=== PATIENT | male | born 1935 | race Two or more races ===

== ENCOUNTER 2016-07-18 20:45 | Emergency (ER) | payer MEDICARE, OTHER ==
[~2016-07-18 20:45] MED LIST: ASPI81CH59 PO; CARB25TA75 PO; DOC100C PO; GLIP-116 PO; INSUINJ37 SUBCUT; METF-312 PO; PRAV20TA3 PO; RASA1TAB PO; TAMS0.4C36 PO
[2016-07-18 23:26] LABS: Basophils # (auto) 0.6 uL; Basophils % (auto) 3.1 % (0.0-2.0); DEFINITIVE VIEW TRANSMISSION; Eosinophils # (auto) 0 uL; Eosinophils % (auto) 0.1 % (0.0-7.0); Hematocrit 45.3 % (41.0-53.0); Hemoglobin 15.1 g/dL (13.5-17.5); Lymphocytes # (auto) 0.8 uL; Lymphocytes % (auto) 4.5 % (10.0-50.0); Mean Corpuscular Hgb Conc. 33.4 g/dL (32.0-36.0); Mean Platelet Volume 8.8 fL (7.4-10.4); Monocytes # (auto) 1.5 uL; Monocytes % (auto) 8.2 % (0.0-12.0); Neutrophils # (auto) 15.4 uL; Neutrophils % (auto) 84.1 % (37.0-80.0); Platelet Count (auto) 232 10^3/uL (140-450); Red Cell Distribution Width 11.8 % (11.6-16.0); SUSPECT VIEW TRANSMISSION; White Blood Cell 18.3 10^3/uL (4.4-10.8)
[2016-07-18 23:35] LABS: Albumin 3.3 g/dL (3.4-5.0); BUN/Creatinine Ratio 11.8; Calcium 8.6 mg/dL (8.5-10.1); Potassium 4.8 mmol/L (3.5-5.1)
[2016-07-18 23:37] LABS: Bilirubin, Total 0.7 mg/dL (0.2-1.0); Total Protein 6.8 g/dL (6.4-8.2)
[2016-07-18] MEDS ORDERED: IOHEXOL 300 MG/ML 100ML BOTTLE IJ ONE (23:45)
[2016-07-19 03:11] VITALS: BP 116/82
== END 2016-07-19 03:16 | disposition home or self-care (01) ==
LOC: EDBD 20:45 → EDUNIT# 20:45 → ER 20:49
DX: S20.219A Contusion of unspecified front wall of thorax, initial encounter (principal); R10.10 Upper abdominal pain, unspecified; E11.9 Type 2 diabetes mellitus without complications; E78.5 Hyperlipidemia, unspecified; I10 Essential (primary) hypertension; Z79.4 Long term (current) use of insulin; W18.39XA Other fall on same level, initial encounter; Y93.89 Activity, other specified; Y99.8 Other external cause status; Y92.009 Unspecified place in unspecified non-institutional (private) residence as the place of occurrence of the external cause
CPT/HCPCS: 36415; 71260; 74177; 80053; 83690; 85025; 99285; J7030; Q9967

== ENCOUNTER → 2016-07-19 | Outpatient (CLI) | payer MEDICARE, OTHER | END | disposition home or self-care (01) | LOC: LAB 14:37 | PROVIDERS: ATTEND Internal Medicine | DX: Z91.81 History of falling (principal) | CPT/HCPCS: 87086 ==

== ENCOUNTER → 2016-07-21 | Outpatient (CLI) | payer MEDICARE, OTHER ==
[2016-07-21 13:50] LABS: Basophils # (auto) 0 uL; Eosinophils # (auto) 0.1 uL; Eosinophils % (auto) 1.2 % (0.0-7.0); Hematocrit 43.1 % (41.0-53.0); Hemoglobin 14.3 g/dL (13.5-17.5); Lymphocytes # (auto) 1.2 uL; Lymphocytes % (auto) 11.2 % (10.0-50.0); Mean Corpuscular Hemoglobin 29.2 pg (28.0-32.0); Mean Corpuscular Hgb Conc. 33.1 g/dL (32.0-36.0); Mean Corpuscular Volume 88.1 fL (80.0-100.0); Mean Platelet Volume 10.5 fL (7.4-10.4); Monocytes # (auto) 0.7 uL; Monocytes % (auto) 6.7 % (0.0-12.0); Neutrophils # (auto) 8.6 uL; Neutrophils % (auto) 80.9 % (37.0-80.0); Platelet Count (auto) 270 10^3/uL (140-450); Red Cell Distribution Width 13.4 % (11.6-16.0); SUSPECT VIEW TRANSMISSION; White Blood Cell 10.7 10^3/uL (4.4-10.8)
[2016-07-21 13:55] LABS: BUN/Creatinine Ratio 15.1; Calcium 8.7 mg/dL (8.5-10.1); Potassium 4.2 mmol/L (3.5-5.1)
== END | disposition home or self-care (01) ==
LOC: LAB 12:54
PROVIDERS: ATTEND Internal Medicine
DX: E86.0 Dehydration (principal); D72.829 Elevated white blood cell count, unspecified
CPT/HCPCS: 36415; 80048; 83036; 85025

== ENCOUNTER → 2017-01-24 | Outpatient (CLI) | payer MEDICARE, OTHER ==
[~2017-01-24] MED LIST changes: -METF-312 PO; +METF-370 PO
[2017-01-24 11:27] LABS: Basophils # (auto) 0 uL; Basophils % (auto) 0.5 % (0.0-2.0); Eosinophils # (auto) 0.2 uL; Eosinophils % (auto) 2.2 % (0.0-7.0); Hematocrit 45.6 % (41.0-53.0); Hemoglobin 15.6 g/dL (13.5-17.5); Lymphocytes % (auto) 11.4 % (10.0-50.0); Mean Corpuscular Hemoglobin 29.6 pg (28.0-32.0); Mean Corpuscular Hgb Conc. 34.3 g/dL (32.0-36.0); Mean Corpuscular Volume 86.1 fL (80.0-100.0); Mean Platelet Volume 9.6 fL (6.9-10.8); Monocytes # (auto) 0.6 uL; Monocytes % (auto) 7.1 % (0.0-12.0); Neutrophils # (auto) 7.1 uL; Neutrophils % (auto) 78.8 % (37.0-80.0); Nucleated Red Blood Cells % 0.1 %; Platelet Count (auto) 232 10^3/uL (140-450); Red Cell Distribution Width 13.7 % (11.8-14.3)
[2017-01-24 12:09] LABS: Albumin 3.4 g/dL (3.4-5.0); BUN/Creatinine Ratio 14.7; Bilirubin, Total 0.5 mg/dL (0.2-1.0); Calcium 8.3 mg/dL (8.5-10.1); Potassium 4.4 mmol/L (3.5-5.1); Total Protein 7.3 g/dL (6.4-8.2); Uric Acid 5.9 mg/dL (3.5-7.2)
== END | disposition home or self-care (01) ==
LOC: LAB 10:34
PROVIDERS: ATTEND Internal Medicine
DX: E10.9 Type 1 diabetes mellitus without complications (principal); I12.9 Hypertensive chronic kidney disease with stage 1 through stage 4 chronic kidney disease, or unspecified chronic kidney disease; N18.3 Chronic kidney disease, stage 3 (moderate); N40.0 Benign prostatic hyperplasia without lower urinary tract symptoms
CPT/HCPCS: 36415; 80053; 83036; 83970; 84153; 84550; 85025

== ENCOUNTER → 2017-07-12 | Outpatient (CLI) | payer MEDICARE, OTHER ==
[2017-07-12 11:30] LABS: Urine Bacteria NONE SEEN /hpf (None Seen); Urine Blood Negative /uL (Negative); Urine Specific Gravity 1.018 (1.001-1.035); Urine WBC 25 /hpf (0 - 3)
[2017-07-12 12:27] LABS: Albumin 3.5 g/dL (3.4-5.0); Bilirubin, Total 0.5 mg/dL (0.2-1.0); Calcium 8.3 mg/dL (8.5-10.1); Potassium 4.8 mmol/L (3.5-5.1); Total Protein 7.4 g/dL (6.4-8.2)
[2017-07-12 12:45] LABS: Basophils # (auto) 0 uL; Basophils % (auto) 0.5 % (0.0-2.0); Eosinophils # (auto) 0.1 uL; Hematocrit 47.4 % (41.0-53.0); Hemoglobin 15.7 g/dL (13.5-17.5); Lymphocytes % (auto) 13.5 % (10.0-50.0); Mean Corpuscular Hemoglobin 29.4 pg (28.0-32.0); Mean Corpuscular Hgb Conc. 33.1 g/dL (32.0-36.0); Mean Corpuscular Volume 88.7 fL (80.0-100.0); Monocytes # (auto) 0.6 uL; Monocytes % (auto) 7.7 % (0.0-12.0); Neutrophils # (auto) 5.7 uL; Neutrophils % (auto) 76.3 % (37.0-80.0); Platelet Count (auto) 227 10^3/uL (140-450); Red Blood Cells 5.35 10^6/uL (4.5-5.90); Red Cell Distribution Width 13.2 % (11.8-14.3); White Blood Cell 7.5 10^3/uL (4.4-10.8)
== END | disposition home or self-care (01) ==
LOC: LAB 11:00
PROVIDERS: ATTEND Internal Medicine
DX: I10 Essential (primary) hypertension (principal); E11.9 Type 2 diabetes mellitus without complications; E55.9 Vitamin D deficiency, unspecified
CPT/HCPCS: 36415; 80053; 80061; 81001; 82043; 83036; 84439; 84443; 85025; 85652

== ENCOUNTER → 2018-05-16 | Outpatient (CLI) | payer MEDICARE, OTHER ==
[2018-05-16 13:25] LABS: Albumin 3.3 g/dL (3.4-5.0); Calcium 8.6 mg/dL (8.5-10.1); Potassium 4.6 mmol/L (3.5-5.1)
[2018-05-16 13:29] LABS: BUN/Creatinine Ratio 14.4; Bilirubin, Total 0.4 mg/dL (0.2-1.0); Total Protein 7.1 g/dL (6.4-8.2)
== END | disposition home or self-care (01) ==
LOC: LAB 12:32
PROVIDERS: ATTEND Internal Medicine
DX: N40.0 Benign prostatic hyperplasia without lower urinary tract symptoms (principal); E11.22 Type 2 diabetes mellitus with diabetic chronic kidney disease; N18.3 Chronic kidney disease, stage 3 (moderate)
CPT/HCPCS: 36415; 80053; 83036; 84153

== ENCOUNTER 2018-06-09 07:29 | Emergency (ER) | payer MEDICARE, OTHER ==
[~2018-06-09] VITALS: Ht 170.2 cm; Wt 90.7 kg
[2018-06-09] MEDS ORDERED: TETANUS-DIPTH-ACEL PERTUSSIS 0.5ML SYRG IM ONE (08:45)
[2018-06-09 09:13] LABS: Basophils # (auto) 0 uL; Basophils % (auto) 0.4 % (0.0-2.0); Eosinophils # (auto) 0.2 uL; Eosinophils % (auto) 2.3 % (0.0-7.0); Hematocrit 45.8 % (41.0-53.0); Hemoglobin 15.7 g/dL (13.5-17.5); Lymphocytes # (auto) 0.9 uL; Lymphocytes % (auto) 10.7 % (10.0-50.0); Mean Corpuscular Hgb Conc. 34.3 g/dL (32.0-36.0); Mean Corpuscular Volume 87.2 fL (80.0-100.0); Monocytes # (auto) 0.5 uL; Monocytes % (auto) 6.6 % (0.0-12.0); Neutrophils # (auto) 6.5 uL; Nucleated Red Blood Cells % 0.1 %; Platelet Count (auto) 198 10^3/uL (140-450); Red Blood Cells 5.25 10^6/uL (4.5-5.90); Red Cell Distribution Width 13.2 % (11.8-14.3); White Blood Cell 8.1 10^3/uL (4.4-10.8)
[2018-06-09 09:28] LABS: INR 0.97 (0.9-1.15); Prothrombin Time 10.4 sec (9.27-12.13)
[2018-06-09 09:30] LABS: Alanine Aminotransferase 21 U/L (16-61); Albumin 3.2 g/dL (3.4-5.0); Anion Gap 5 (5-15); Aspartate Aminotransferase 12 U/L (15-37); BUN/Creatinine Ratio 15.2; Blood Urea Nitrogen 19 mg/dL (7-18); Calcium 8.4 mg/dL (8.5-10.1); Carbon Dioxide 30 mmol/L (21-32); Chloride 104 mmol/L (98-107); GFR African American 71 mL/min; GFR Non-African American 59 mL/min; Glucose 109 mg/dL (74-106); Potassium 4.8 mmol/L (3.5-5.1); Sodium 139 mmol/L (136-145)
[2018-06-09 09:34] LABS: Alkaline Phosphatase 81 U/L (45-117); Bilirubin, Total 0.5 mg/dL (0.2-1.0); Total Protein 6.9 g/dL (6.4-8.2)
[2018-06-09 10:46] VITALS: BP 136/76
== END 2018-06-09 11:10 | disposition home or self-care (01) ==
LOC: ER 07:29 → EDUNIT# 07:29 → EDBD 07:29 → ER 11:10
DX: S01.01XA Laceration without foreign body of scalp, initial encounter (principal); R42 Dizziness and giddiness; E11.9 Type 2 diabetes mellitus without complications; I10 Essential (primary) hypertension; W06.XXXA Fall from bed, initial encounter; Y93.89 Activity, other specified; Y92.092 Bedroom in other non-institutional residence as the place of occurrence of the external cause; Y99.8 Other external cause status
CPT/HCPCS: 12002; 36415; 70450; 80053; 84484; 85025; 85610; 85730; 90471; 90715

== ENCOUNTER → 2019-08-08 | Outpatient (CLI) | payer MEDICARE, OTHER ==
[~2019-08-08] MED LIST changes: -GLIP-116 PO; +GLIP10TA9 PO
[2019-08-08 08:35] LABS: Basophils # (auto) 0 10 ^3/uL (0-0.2); Basophils % (auto) 0.5 % (0.0-2.0); Eosinophils # (auto) 0.2 10 ^3/uL (0-0.8); Eosinophils % (auto) 2.7 % (0.0-7.0); Hematocrit 46.9 % (41.0-53.0); Hemoglobin 15.5 g/dL (13.5-17.5); Lymphocytes # (auto) 1.1 10 ^3/uL (0.4-5.4); Lymphocytes % (auto) 12.7 % (10.0-50.0); Mean Corpuscular Hemoglobin 28.8 pg (28.0-32.0); Mean Corpuscular Volume 87.4 fL (80.0-100.0); Monocytes # (auto) 0.5 10 ^3/uL (0-1.3); Monocytes % (auto) 6.3 % (0.0-12.0); Neutrophils # (auto) 6.6 10 ^3/uL (1.6-8.6); Neutrophils % (auto) 77.8 % (37.0-80.0); Nucleated Red Blood Cells % 0.1 %; Platelet Count (auto) 214 10^3/uL (140-450); Red Blood Cells 5.37 10^6/uL (4.5-5.90); White Blood Cell 8.5 10^3/uL (4.4-10.8)
[2019-08-08 08:41] LABS: Urine Bacteria MOD /hpf (None Seen); Urine Blood Negative /uL (Negative); Urine Hyaline Cast FEW /lpf (0 - 2); Urine Mucus FEW (None Seen); Urine WBC 109 /hpf (0 - 3)
[2019-08-08 10:07] LABS: Potassium 4.1 mmol/L (3.5-5.1)
[2019-08-08 10:17] LABS: Albumin 3.1 g/dL (3.4-5.0); BUN/Creatinine Ratio 15.3; Bilirubin, Total 0.5 mg/dL (0.2-1.0); Calcium 8.7 mg/dL (8.5-10.1); Total Protein 7.1 g/dL (6.4-8.2)
[2019-08-08 10:22] LABS: Free T4 (Free Thyroxine) 1.21 ng/dL (0.89-1.76)
== END | disposition home or self-care (01) ==
LOC: LAB 08:03
PROVIDERS: ATTEND Internal Medicine
DX: I10 Essential (primary) hypertension (principal); E11.9 Type 2 diabetes mellitus without complications; F03.90 Unspecified dementia, unspecified severity, without behavioral disturbance, psychotic disturbance, mood disturbance, and anxiety
CPT/HCPCS: 36415; 80053; 80061; 81001; 82043; 82607; 83036; 84439; 84443; 85025; 85652

== ENCOUNTER 2019-09-13 16:54 | Emergency (ER) | payer MEDICARE, OTHER ==
[~2019-09-13] VITALS: Ht 170.2 cm; Wt 104.8 kg
[2019-09-13] MEDS ORDERED: SODIUM CHLORIDE 0.9% 500 ML IV ONE (17:09)
[2019-09-13 18:04] LABS: Basophils # (auto) 0 10 ^3/uL (0-0.2); Basophils % (auto) 0.6 % (0.0-2.0); Eosinophils # (auto) 0 10 ^3/uL (0-0.8); Eosinophils % (auto) 0.2 % (0.0-7.0); Hematocrit 43.6 % (41.0-53.0); Hemoglobin 14.5 g/dL (13.5-17.5); Lymphocytes # (auto) 0.3 10 ^3/uL (0.4-5.4); Mean Corpuscular Hemoglobin 28.9 pg (28.0-32.0); Mean Corpuscular Hgb Conc. 33.3 g/dL (32.0-36.0); Mean Corpuscular Volume 86.7 fL (80.0-100.0); Monocytes # (auto) 0.8 10 ^3/uL (0-1.3); Monocytes % (auto) 9.1 % (0.0-12.0); Neutrophils # (auto) 7.3 10 ^3/uL (1.6-8.6); Neutrophils % (auto) 86.1 % (37.0-80.0); Nucleated Red Blood Cells % 0.4 %; Platelet Count (auto) 167 10^3/uL (140-450); Red Blood Cells 5.03 10^6/uL (4.5-5.90); Red Cell Distribution Width 13.6 % (11.8-14.3); White Blood Cell 8.5 10^3/uL (4.4-10.8)
[2019-09-13 18:19] LABS: Albumin 2.7 g/dL (3.4-5.0); Anion Gap 7 (5-15); Blood Urea Nitrogen 23 mg/dL (7-18); Calcium 8.5 mg/dL (8.5-10.1); Carbon Dioxide 27 mmol/L (21-32); Chloride 102 mmol/L (98-107); Glucose 136 mg/dL (74-106); Potassium 4.4 mmol/L (3.5-5.1); Sodium 136 mmol/L (136-145)
[2019-09-13 18:24] LABS: Alanine Aminotransferase 13 U/L (16-61); Alkaline Phosphatase 78 U/L (45-117); Aspartate Aminotransferase 17 U/L (15-37); BUN/Creatinine Ratio 17.2; Bilirubin, Total 0.6 mg/dL (0.2-1.0); GFR African American 65 mL/min; GFR Non-African American 54 mL/min; Total Protein 6.7 g/dL (6.4-8.2)
[2019-09-13 19:33] VITALS: BP 165/75
== END 2019-09-13 21:00 | disposition home or self-care (01) ==
LOC: ER 16:54 → EDBD 16:54 → ER 21:00
DX: S09.8XXA Other specified injuries of head, initial encounter (principal); E11.9 Type 2 diabetes mellitus without complications; E78.5 Hyperlipidemia, unspecified; I10 Essential (primary) hypertension; W19.XXXA Unspecified fall, initial encounter; Y93.89 Activity, other specified; Y92.89 Other specified places as the place of occurrence of the external cause; Y99.8 Other external cause status
CPT/HCPCS: 36415; 70450; 71045; 72125; 80053; 84484; 85025

== ENCOUNTER 2019-12-16 12:44 | Inpatient (IN) | payer MEDICARE, OTHER ==
[~2019-12-16] VITALS: Ht 170.2 cm; Wt 89.5 kg
[2019-12-16 14:27] LABS: Basophils # (auto) 0.1 10 ^3/uL (0-0.2); Basophils % (auto) 0.6 % (0.0-2.0); Eosinophils # (auto) 0.2 10 ^3/uL (0-0.8); Eosinophils % (auto) 1.3 % (0.0-7.0); Hemoglobin 13.7 g/dL (13.5-17.5); Lymphocytes % (auto) 7.5 % (10.0-50.0); Mean Corpuscular Hemoglobin 28.6 pg (28.0-32.0); Mean Corpuscular Hgb Conc. 33.5 g/dL (32.0-36.0); Mean Corpuscular Volume 85.4 fL (80.0-100.0); Monocytes # (auto) 1.1 10 ^3/uL (0-1.3); Neutrophils # (auto) 11.4 10 ^3/uL (1.6-8.6); Neutrophils % (auto) 82.6 % (37.0-80.0); Platelet Count (auto) 238 10^3/uL (140-450); Red Cell Distribution Width 13.7 % (11.8-14.3); White Blood Cell 13.8 10^3/uL (4.4-10.8)
[2019-12-16 14:42] LABS: Urine Bacteria MANY /hpf (None Seen); Urine Blood Negative /uL (Negative); Urine Hyaline Cast FEW /lpf (0 - 2); Urine Mucus FEW (None Seen); Urine Specific Gravity 1.014 (1.001-1.035); Urine WBC 87 /hpf (0 - 3); Urine WBC Clumps PRESENT /hpf (None Seen)
[2019-12-16 14:48] LABS: Potassium 4.1 mmol/L (3.5-5.1)
[2019-12-16 14:54] LABS: Albumin 2.6 g/dL (3.4-5.0); BUN/Creatinine Ratio 19.1; Bilirubin, Total 0.3 mg/dL (0.2-1.0); Total Protein 6.7 g/dL (6.4-8.2)
[2019-12-16] MEDS ORDERED: cefTRIAXone 1GM/50ML D5W 50 ML IV ONE (15:00)
[2019-12-16] MEDS ORDERED: HYDROcodone-ACET 5/325MG TAB PO PRN (16:00)
[2019-12-16] MEDS ORDERED: ONDANSETRON HCL 4 MG/2 ML VIAL IV PRN (16:00)
[2019-12-16] MEDS ORDERED: DOCUSATE SOD 100 MG CAP PO PRN (16:00)
[2019-12-16] MEDS ORDERED: MORPHINE SULF INJ 2 MG/ML SYRINGE 1ML IV PRN ×2 (16:00)
[2019-12-16] MEDS ORDERED: LORazepam 0.5 MG TAB PO PRN (16:00)
[2019-12-16] MEDS ORDERED: ALUM & MAG HYDROX-SIMETH LIQ(MAALOX) 30 ML PO PRN (16:00)
[2019-12-16] MEDS ORDERED: ACETAMINOPHEN 325 MG TAB PO PRN (16:00)
[2019-12-16] MEDS ORDERED: NITROGLYCERIN 0.4 MG SL TAB SL PRN (16:00)
[2019-12-16] MEDS ORDERED: METF-929 PO (16:41)
[2019-12-16] MEDS ORDERED: DONE5TAB31 PO (16:44)
[2019-12-16] MEDS ORDERED: FURO20TA3 PO (16:44)
[2019-12-16] MEDS ORDERED: LACT10SO3 PO (16:44)
[2019-12-16] MEDS ORDERED: OMEP20TA PO (16:44)
[2019-12-16] MEDS ORDERED: LACTCAP35 PO (16:47)
[2019-12-16] MEDS ORDERED: CYAN1SUB5 SL (16:47)
[2019-12-16] MEDS ORDERED: CRAN250C PO (16:47)
[2019-12-16] MEDS ORDERED: FIBE1CHW PO (16:47)
[2019-12-16] MEDS ORDERED: CHOL500023 PO (16:47)
[2019-12-16] MEDS ORDERED: MULT-940 PO (16:47)
[2019-12-16] MEDS ORDERED: MAGNSUS48 PO (16:49)
[2019-12-16] MEDS ORDERED: ACET-1156 PO (16:49)
[2019-12-16 16:59] LABS: Cholesterol 123 mg/dL (< 200); HDL Cholesterol 36 mg/dL (40-59); LDL Cholesterol 77 mg/dL (< 100); Triglycerides 119 mg/dL (< 150)
[2019-12-16] MEDS ORDERED: metroNIDAZOLE 500MG/100ML 100 ML IV ONE (17:00)
[2019-12-16] MEDS: SODIUM CHLORIDE 0.9% 1,000 ML IV SCH (18:10)
[2019-12-16] MEDS ORDERED: DEXTROSE (50%) 50ML SYRG IV PRN (21:45)
[2019-12-16] MEDS ORDERED: LACTULOSE 20Gm/30ML SOLN PO PRN (21:45)
[2019-12-16] MEDS ORDERED: FUROSEMIDE 20 MG/2 ML VIAL IV ONE (21:45)
[2019-12-16] MEDS: ACCU-CHEK COMFORT CURVE STRIP VI SCH (22:42)
[2019-12-16] MEDS: InsuLIN REG 1unit/0.01ml Soln (100units/ml) SC SCH (22:42)
[2019-12-16] MEDS: DONEPEZIL HYDROCHLORIDE 5 MG TAB PO SCH (22:47)
[2019-12-16] MEDS: ATORVASTATIN 20 MG TAB PO SCH (22:47)
[2019-12-16] MEDS: CARBIDOPA W LEVODOPA 25/100mg TABLET PO SCH (22:47)
[2019-12-17] MEDS: FUROSEMIDE 20 MG/2 ML VIAL IV SCH ×2 (06:00→17:55)
[2019-12-17] MEDS: SODIUM CHLORIDE 0.9% 1,000 ML IV SCH ×2 (06:42→17:55)
[2019-12-17] MEDS: InsuLIN REG 1unit/0.01ml Soln (100units/ml) SC SCH ×4 (06:42→20:32)
[2019-12-17] MEDS: ACCU-CHEK COMFORT CURVE STRIP VI SCH ×4 (06:42→20:25)
[2019-12-17] MEDS: CARBIDOPA W LEVODOPA 25/100mg TABLET PO SCH ×3 (07:01→20:25)
[2019-12-17] MEDS ORDERED: ENOXAPARIN SOD 40 MG/0.4 ML SYRINGE SC SCH (10:00)
[2019-12-17] MEDS: ASPirin 81 mg TAB PO SCH (10:54)
[2019-12-17] MEDS: CHOLECALCIFEROL (VITD3) 2,000 UNIT CAP PO SCH (10:55)
[2019-12-17] MEDS: PANTOPRAZOLE 40 MG TAB PO SCH (10:55)
[2019-12-17] MEDS: CYANOCOBALAMIN 500 MCG TAB PO SCH (10:55)
[2019-12-17] MEDS: CEFTRIAXONE SODIUM 2 GM in D5W 5% 50 ML IV SCH (11:29)
[2019-12-17 15:00] VITALS: BP 131/57
[2019-12-17 17:34] VITALS: BP 132/75
[2019-12-17] MEDS: DONEPEZIL HYDROCHLORIDE 5 MG TAB PO SCH (20:25)
[2019-12-17] MEDS: ATORVASTATIN 20 MG TAB PO SCH (20:25)
[2019-12-17 22:00] VITALS: BP 112/48
[2019-12-18] MEDS: FUROSEMIDE 20 MG/2 ML VIAL IV SCH ×2 (05:39→17:44)
[2019-12-18] MEDS: InsuLIN REG 1unit/0.01ml Soln (100units/ml) SC SCH ×4 (05:40→23:14)
[2019-12-18] MEDS: ACCU-CHEK COMFORT CURVE STRIP VI SCH ×4 (05:40→23:10)
[2019-12-18] MEDS: CARBIDOPA W LEVODOPA 25/100mg TABLET PO SCH ×3 (05:40→23:10)
[2019-12-18 05:51] LABS: Basophils # (auto) 0 10 ^3/uL (0-0.2); Basophils % (auto) 0.6 % (0.0-2.0); Eosinophils # (auto) 0.2 10 ^3/uL (0-0.8); Eosinophils % (auto) 2.9 % (0.0-7.0); Hematocrit 37.4 % (41.0-53.0); Hemoglobin 12.5 g/dL (13.5-17.5); Lymphocytes # (auto) 1.1 10 ^3/uL (0.4-5.4); Lymphocytes % (auto) 12.5 % (10.0-50.0); Mean Corpuscular Hemoglobin 28.8 pg (28.0-32.0); Mean Corpuscular Hgb Conc. 33.3 g/dL (32.0-36.0); Mean Corpuscular Volume 86.4 fL (80.0-100.0); Monocytes # (auto) 0.7 10 ^3/uL (0-1.3); Monocytes % (auto) 7.7 % (0.0-12.0); Neutrophils # (auto) 6.6 10 ^3/uL (1.6-8.6); Neutrophils % (auto) 76.3 % (37.0-80.0); Platelet Count (auto) 219 10^3/uL (140-450); Red Blood Cells 4.33 10^6/uL (4.5-5.90); Red Cell Distribution Width 13.5 % (11.8-14.3); White Blood Cell 8.7 10^3/uL (4.4-10.8)
[2019-12-18 05:56] VITALS: BP 139/65
[2019-12-18 06:11] LABS: BUN/Creatinine Ratio 20.2; Calcium 8.3 mg/dL (8.5-10.1); Potassium 3.9 mmol/L (3.5-5.1)
[2019-12-18] MEDS: SODIUM CHLORIDE 0.9% 1,000 ML IV SCH ×2 (08:00→21:20)
[2019-12-18 09:00] VITALS: BP 127/69
[2019-12-18] MEDS: CEFTRIAXONE SODIUM 2 GM in D5W 5% 50 ML IV SCH (09:00)
[2019-12-18] MEDS: ENOXAPARIN SOD 40 MG/0.4 ML SYRINGE SC SCH (09:01)
[2019-12-18] MEDS: CHOLECALCIFEROL (VITD3) 2,000 UNIT CAP PO SCH (09:01)
[2019-12-18] MEDS: CYANOCOBALAMIN 500 MCG TAB PO SCH (09:01)
[2019-12-18] MEDS: ASPirin 81 mg TAB PO SCH (09:01)
[2019-12-18] MEDS: PANTOPRAZOLE 40 MG TAB PO SCH (09:01)
[2019-12-18 13:00] VITALS: BP 161/69
[2019-12-18 17:29] VITALS: BP 139/67
[2019-12-18 22:00] VITALS: BP 123/67
[2019-12-18] MEDS: ATORVASTATIN 20 MG TAB PO SCH (23:10)
[2019-12-18] MEDS: DONEPEZIL HYDROCHLORIDE 5 MG TAB PO SCH (23:10)
[2019-12-18] MEDS: INSULIN LANTUS (GLARGINE) 1 /0.01ml (100units/ml) SC SCH (23:14)
[2019-12-19 05:00] VITALS: BP 153/90
[2019-12-19] MEDS: CARBIDOPA W LEVODOPA 25/100mg TABLET PO SCH ×3 (06:00→22:08)
[2019-12-19] MEDS: FUROSEMIDE 20 MG/2 ML VIAL IV SCH ×2 (06:00→17:29)
[2019-12-19 06:06] LABS: Basophils # (auto) 0 10 ^3/uL (0-0.2); Basophils % (auto) 0.5 % (0.0-2.0); Eosinophils # (auto) 0.3 10 ^3/uL (0-0.8); Eosinophils % (auto) 3.8 % (0.0-7.0); Hematocrit 40.2 % (41.0-53.0); Hemoglobin 13.5 g/dL (13.5-17.5); Lymphocytes # (auto) 1.3 10 ^3/uL (0.4-5.4); Lymphocytes % (auto) 16.5 % (10.0-50.0); Mean Corpuscular Hemoglobin 28.7 pg (28.0-32.0); Mean Corpuscular Hgb Conc. 33.5 g/dL (32.0-36.0); Mean Corpuscular Volume 85.5 fL (80.0-100.0); Monocytes # (auto) 0.7 10 ^3/uL (0-1.3); Monocytes % (auto) 8.4 % (0.0-12.0); Neutrophils # (auto) 5.8 10 ^3/uL (1.6-8.6); Neutrophils % (auto) 70.8 % (37.0-80.0); Platelet Count (auto) 257 10^3/uL (140-450); Red Blood Cells 4.71 10^6/uL (4.5-5.90); Red Cell Distribution Width 13.2 % (11.8-14.3); White Blood Cell 8.1 10^3/uL (4.4-10.8)
[2019-12-19] MEDS ORDERED: hydrALAZINE HCL 20 MG/ML VL IV ONE (06:15)
[2019-12-19 06:22] LABS: Calcium 8.5 mg/dL (8.5-10.1); Potassium 3.6 mmol/L (3.5-5.1)
[2019-12-19] MEDS: InsuLIN REG 1unit/0.01ml Soln (100units/ml) SC SCH ×4 (06:33→22:45)
[2019-12-19] MEDS: INSULIN LANTUS (GLARGINE) 1 /0.01ml (100units/ml) SC SCH ×2 (06:34→22:45)
[2019-12-19] MEDS: ACCU-CHEK COMFORT CURVE STRIP VI SCH ×4 (06:41→22:30)
[2019-12-19] MEDS ORDERED: cloNIDine HCL 0.1 MG TAB PO ONE (07:15)
[2019-12-19 08:00] VITALS: BP 126/61
[2019-12-19 09:00] VITALS: BP 126/61
[2019-12-19] MEDS: cefTRIAXone 1GM/50ML D5W 50 ML IV SCH (09:49)
[2019-12-19] MEDS: ASPirin 81 mg TAB PO SCH (09:49)
[2019-12-19] MEDS: PANTOPRAZOLE 40 MG TAB PO SCH (09:49)
[2019-12-19] MEDS: CYANOCOBALAMIN 500 MCG TAB PO SCH (09:50)
[2019-12-19] MEDS: ENOXAPARIN SOD 40 MG/0.4 ML SYRINGE SC SCH (09:50)
[2019-12-19] MEDS: CHOLECALCIFEROL (VITD3) 1,000UNIT=25mCg TAB PO SCH (09:50)
[2019-12-19] MEDS: SODIUM CHLORIDE 0.9% 1,000 ML IV SCH (09:51)
[2019-12-19 13:00] VITALS: BP 129/66
[2019-12-19] MEDS ORDERED: CEPH-37 PO (16:28)
[2019-12-19 17:00] VITALS: BP 133/72
[2019-12-19 22:00] VITALS: BP 131/58
[2019-12-19] MEDS: ATORVASTATIN 20 MG TAB PO SCH (22:08)
[2019-12-19] MEDS: DONEPEZIL HYDROCHLORIDE 5 MG TAB PO SCH (22:08)
[2019-12-20] MEDS: SODIUM CHLORIDE 0.9% 1,000 ML IV SCH
[2019-12-20 05:00] VITALS: BP 150/62
[2019-12-20] MEDS: CARBIDOPA W LEVODOPA 25/100mg TABLET PO SCH (06:00)
[2019-12-20] MEDS: FUROSEMIDE 20 MG/2 ML VIAL IV SCH (06:00)
[2019-12-20] MEDS: InsuLIN REG 1unit/0.01ml Soln (100units/ml) SC SCH ×2 (06:33→11:57)
[2019-12-20] MEDS: INSULIN LANTUS (GLARGINE) 1 /0.01ml (100units/ml) SC SCH (06:34)
[2019-12-20] MEDS: ACCU-CHEK COMFORT CURVE STRIP VI SCH ×2 (07:00→11:38)
[2019-12-20 09:00] VITALS: BP 95/63
[2019-12-20] MEDS: ASPirin 81 mg TAB PO SCH (09:25)
[2019-12-20] MEDS: CHOLECALCIFEROL (VITD3) 1,000UNIT=25mCg TAB PO SCH (09:25)
[2019-12-20] MEDS: PANTOPRAZOLE 40 MG TAB PO SCH (09:25)
[2019-12-20] MEDS: cefTRIAXone 1GM/50ML D5W 50 ML IV SCH (09:25)
[2019-12-20] MEDS: CYANOCOBALAMIN 500 MCG TAB PO SCH (09:26)
[2019-12-20] MEDS: ENOXAPARIN SOD 40 MG/0.4 ML SYRINGE SC SCH (09:26)
[2019-12-20 11:26] VITALS: BP 95/63
== END 2019-12-20 13:30 | disposition home or self-care (01) | DRG 728 ==
LOC: ER 12:44 → EDBD 12:44 → TELE 12:45 → TELE-WESTW 12-17 14:35
PROVIDERS: ADMIT Hospitalist; ATTEND Internal Medicine Pulmonary Disease
DX: N45.1 Epididymitis (principal); N39.0 Urinary tract infection, site not specified; N45.4 Abscess of epididymis or testis; F02.80 Dementia in other diseases classified elsewhere, unspecified severity, without behavioral disturbance, psychotic disturbance, mood disturbance, and anxiety; E66.01 Morbid (severe) obesity due to excess calories; N40.0 Benign prostatic hyperplasia without lower urinary tract symptoms; R00.1 Bradycardia, unspecified; Z20.828 Contact with and (suspected) exposure to other viral communicable diseases; E78.5 Hyperlipidemia, unspecified; L89.151 Pressure ulcer of sacral region, stage 1; E11.319 Type 2 diabetes mellitus with unspecified diabetic retinopathy without macular edema; I10 Essential (primary) hypertension; G30.9 Alzheimer's disease, unspecified; K59.04 Chronic idiopathic constipation; N43.3 Hydrocele, unspecified; K58.9 Irritable bowel syndrome, unspecified; E11.21 Type 2 diabetes mellitus with diabetic nephropathy; E11.40 Type 2 diabetes mellitus with diabetic neuropathy, unspecified; M19.90 Unspecified osteoarthritis, unspecified site; Z87.440 Personal history of urinary (tract) infections; Z79.82 Long term (current) use of aspirin; Z79.84 Long term (current) use of oral hypoglycemic drugs; Z82.3 Family history of stroke; Z86.73 Personal history of transient ischemic attack (TIA), and cerebral infarction without residual deficits; Z90.79 Acquired absence of other genital organ(s); Z68.31 Body mass index [BMI] 31.0-31.9, adult
CPT/HCPCS: 36415; 76870; 80048; 80053; 80061; 81001; 82962; 83036; 84443; 84484; 85025; 87040; 87086; 87088; 87186; 93005; 93306; G0378; J0696; J1815; J3490; J7060

== ENCOUNTER 2020-01-10 20:53 | Emergency (ER) | payer MEDICARE, OTHER ==
[~2020-01-10] VITALS: Ht 170.2 cm; Wt 96.2 kg
[~2020-01-10 20:53] MED LIST changes: +ACET-1156 PO; +CEPH-37 PO; +CHOL500023 PO; +CRAN250C PO; +CYAN1SUB5 SL; +DONE5TAB31 PO; +FIBE1CHW PO; +FURO20TA3 PO; +LACT10SO3 PO; +LACTCAP35 PO; +MAGNSUS48 PO; -METF-370 PO; +METF-929 PO; +MULT-940 PO; +OMEP20TA PO; -TAMS0.4C36 PO
[2020-01-10] MEDS ORDERED: FAMOTIDINE (10MG/ML) 2ML VL IV ONE (21:15)
[2020-01-10] MEDS ORDERED: SODIUM CHLORIDE 0.9% 250 ML IV ONE (21:15)
[2020-01-10] MEDS ORDERED: methylPREDNISolone SOD SUCC 125 MG/2 ML VL IV ONE (21:15)
[2020-01-10 22:51] LABS: Basophils # (auto) 0 10 ^3/uL (0-0.2); Basophils % (auto) 0.2 % (0.0-2.0); Eosinophils # (auto) 0.1 10 ^3/uL (0-0.8); Hematocrit 43.1 % (41.0-53.0); Hemoglobin 14.6 g/dL (13.5-17.5); Lymphocytes # (auto) 1.3 10 ^3/uL (0.4-5.4); Mean Corpuscular Hemoglobin 28.9 pg (28.0-32.0); Mean Corpuscular Hgb Conc. 33.9 g/dL (32.0-36.0); Mean Corpuscular Volume 85.3 fL (80.0-100.0); Monocytes # (auto) 0.7 10 ^3/uL (0-1.3); Monocytes % (auto) 8.3 % (0.0-12.0); Neutrophils # (auto) 6.3 10 ^3/uL (1.6-8.6); Neutrophils % (auto) 74.5 % (37.0-80.0); Platelet Count (auto) 215 10^3/uL (140-450); Red Blood Cells 5.05 10^6/uL (4.5-5.90); Red Cell Distribution Width 14.3 % (11.8-14.3); White Blood Cell 8.4 10^3/uL (4.4-10.8)
[2020-01-10 23:09] LABS: Albumin 2.7 g/dL (3.4-5.0); Anion Gap 4 (5-15); Blood Urea Nitrogen 26 mg/dL (7-18); Calcium 8.1 mg/dL (8.5-10.1); Carbon Dioxide 27 mmol/L (21-32); Chloride 109 mmol/L (98-107); Glucose 167 mg/dL (74-106); Magnesium 1.7 mg/dL (1.6-2.6); Potassium 4.1 mmol/L (3.5-5.1); Sodium 140 mmol/L (136-145)
[2020-01-10 23:10] LABS: INR 1.14 (0.9-1.15); Partial Thromboplastin Time 27.6 sec (23.0-31.2)
[2020-01-10 23:18] LABS: Alanine Aminotransferase 10 U/L (16-61); Alkaline Phosphatase 71 U/L (45-117); Aspartate Aminotransferase 9 U/L (15-37); BUN/Creatinine Ratio 20.6; Bilirubin, Total 0.4 mg/dL (0.2-1.0); GFR African American 70 mL/min; GFR Non-African American 58 mL/min; Total Protein 5.8 g/dL (6.4-8.2)
[2020-01-11 09:00] VITALS: BP 159/78
== END 2020-01-11 10:25 | disposition home or self-care (01) ==
LOC: EDBD 20:53 → ER 20:53
DX: T78.3XXA Angioneurotic edema, initial encounter (principal); T36.8X5A Adverse effect of other systemic antibiotics, initial encounter; Z20.828 Contact with and (suspected) exposure to other viral communicable diseases; Z79.82 Long term (current) use of aspirin; Z79.4 Long term (current) use of insulin; Z79.899 Other long term (current) drug therapy; Y92.89 Other specified places as the place of occurrence of the external cause
CPT/HCPCS: 36415; 71045; 80053; 83735; 83880; 84484; 85025; 85610; 85730; 87426; 93005; 96361; 96374; 96375; 99285; J2930; J3490

== ENCOUNTER 2020-01-20 15:36 | Inpatient (IN) | payer MEDICARE, OTHER ==
[~2020-01-20] VITALS: Ht 170.2 cm; Wt 95.8 kg
[2020-01-20 17:23] LABS: Basophils # (auto) 0 10 ^3/uL (0-0.2); Basophils % (auto) 0.5 % (0.0-2.0); Eosinophils # (auto) 0.2 10 ^3/uL (0-0.8); Eosinophils % (auto) 2.4 % (0.0-7.0); Hematocrit 42.6 % (41.0-53.0); Hemoglobin 14.5 g/dL (13.5-17.5); Lymphocytes # (auto) 1.3 10 ^3/uL (0.4-5.4); Lymphocytes % (auto) 16.3 % (10.0-50.0); Mean Corpuscular Hemoglobin 29.1 pg (28.0-32.0); Mean Corpuscular Hgb Conc. 33.9 g/dL (32.0-36.0); Monocytes # (auto) 0.8 10 ^3/uL (0-1.3); Monocytes % (auto) 10.2 % (0.0-12.0); Neutrophils # (auto) 5.7 10 ^3/uL (1.6-8.6); Neutrophils % (auto) 70.6 % (37.0-80.0); Nucleated Red Blood Cells % 0.1 %; Platelet Count (auto) 227 10^3/uL (140-450); Red Blood Cells 4.96 10^6/uL (4.5-5.90); Red Cell Distribution Width 14.2 % (11.8-14.3); White Blood Cell 8.1 10^3/uL (4.4-10.8)
[2020-01-20 17:52] LABS: Albumin 2.8 g/dL (3.4-5.0); Calcium 8.9 mg/dL (8.5-10.1); Potassium 4.1 mmol/L (3.5-5.1)
[2020-01-20 17:54] LABS: BUN/Creatinine Ratio 18.8
[2020-01-20 17:55] LABS: Lactic Acid w/Reflex 2.5 mmol/L (0.4-2.0)
[2020-01-20 17:56] LABS: Bilirubin, Total 0.4 mg/dL (0.2-1.0); Total Protein 6.4 g/dL (6.4-8.2)
[2020-01-21] VITALS (7 sets, daily range): BP systolic 108–147; BP diastolic 61–88
[2020-01-21] MEDS ORDERED: DexAMETHasone SOD PHOS 10MG/1ML VIAL INJ IV ONE
[2020-01-21] MEDS ORDERED: DOXYCYCLINE 100MG/250ML 250 ML IV ONE
[2020-01-21] MEDS ORDERED: DEXTROSE (50%) 50ML SYRG IV PRN ×2 (00:30→13:15)
[2020-01-21] MEDS ORDERED: ONDANSETRON HCL 4 MG/2 ML VIAL IV PRN (00:30)
[2020-01-21] MEDS ORDERED: MORPHINE SULF INJ 2 MG/ML SYRINGE 1ML IV PRN (00:30)
[2020-01-21] MEDS ORDERED: NITROGLYCERIN 0.4 MG SL TAB SL PRN (00:30)
--- NOTE | 2020-01-21 02:00 | NUR ---
Telemetry admit from ER YODIT BROWN admitted to Telemetry unit after SBAR received. Patient oriented to MADDI GARCIA, RN primary RN, unit, room, bed, and unit policies regarding patient care and visiting hours. Patient now on continuous telemetry monitoring, tele box # 6 and telemetry reading on arrival to unit is . Patient placed on bedside oxygen 4L NC, weighed by bedscale and encouraged to call if they need something. All questions and concerns addressed, patient verbalized understanding. Note:
--- NOTE | 2020-01-21 02:05 | NUR ---
Admission Patient does not know medication nor pharmacy he uses. Will endorse this information to dayshift nurse.
--- NOTE | 2020-01-21 02:06 | NUR ---
POX Patient placed on POX#[id number].
[2020-01-21 02:14] LABS: Magnesium 1.6 mg/dL (1.6-2.6)
[2020-01-21 02:23] LABS: CRP High Sensitivity 3.12 mg/dL (< 0.3)
[2020-01-21] MEDS: InsuLIN REG 1unit/0.01ml Soln (100units/ml) SC SCH ×4 (06:17→22:02)
[2020-01-21] MEDS: CARBIDOPA W LEVODOPA 25/100mg TABLET PO SCH ×3 (06:17→22:02)
[2020-01-21] MEDS: ACCU-CHEK COMFORT CURVE STRIP VI SCH ×4 (06:17→22:02)
[2020-01-21] MEDS: ALBUTEROL SULF HFA 90MCG INH 200DOSE IN SCH ×3 (07:28→22:11)
[2020-01-21] MEDS ORDERED: ENOXAPARIN SOD 40 MG/0.4 ML SYRINGE SC SCH (10:00)
[2020-01-21] MEDS: DOXYCYCLINE 100MG/250ML 250 ML IV SCH ×2 (10:04→22:01)
[2020-01-21] MEDS: DexAMETHasone SOD PHOS 10MG/1ML VIAL INJ IV SCH (10:04)
[2020-01-21] MEDS: CHOLECALCIFEROL (VITD3) 2,000 UNIT CAP PO SCH (10:05)
[2020-01-21] MEDS: FAMOTIDINE 20 MG TAB PO SCH ×2 (10:05→22:01)
[2020-01-21] MEDS: ENOXAPARIN SOD 40 MG/0.4 ML SYRINGE SC SCH (10:05)
[2020-01-21] MEDS: ASCORBIC ACID 1,000 MG TAB PO SCH (10:06)
--- NOTE | 2020-01-21 11:47 | NUR ---
Nutrition Assessment/consult Notes please see attached link for complete assessment [employer] needs ABW 79 [id number] kcals (23-25 kcal/kgABW), Est Protein needs: 79-86 gms/day (1.0-1.1gm/kgABW). Will continue to monitor and reassess prn. Addendum: 01/21/20 at [address] Amended: Links added.
--- NOTE | 2020-01-21 11:48 | NUR ---
WOUND CARE NOTE: Wound care in to see patient per wound care request regarding " Left Buttock Wound" that are noted present upon admission. Bedside nurse took photograph of patient's wound upon admission for reference. Patient is 84 years old male with admitting diagnosis of Acute Resp Distress. Patient is resting in bed in Rm. 247A. Patient is awake, alert and able to verbalize needs. He's in no stated pain at this time and he appears to be in no pain using Dai Peck Faces Pain Scale. Patient is able to assist in turning and repositioning. His Cm score is 15. Skin assessment done with the assistance of patient's nurse, DEONDRE Harris. 0.5x0.5cm open partial thickness wound noted on patient's L sacrum. Wound is red with brown hyperpigmented skin. No drainage/odor noted. Intact pink scar tissue noted on patient's Rt sacral. area. Patient is incontinent of urine and soiled the care pad. His perineum and scrotum noted with erythema consistent with moisture associated dermatitis. Tarah care given, applied Z Guard cream to sacral, buttocks and perineum. Covered L sacral wound with Opti foam gentle dressing. Patient tolerated well. Repositioned for comfort facing his Lt side, redistributed pressure points with pillows. DEONDRE Harris at bedside. RECOMMENDATION: Nursing to continue with BID/PRN cleaning and application of Z Guard cream to sacral/buttocks and perineum per MD order, frequent turning and repositioning schedule as condition permits, redistribute pressure points with pillows, frequent tarah care/check, keep clean and dry,elevate heels on pillows, continue monitoring by wound care while patient is hospitalized. Addendum: 01/21/20 at 1405 by Pratibha Araiza RN Amended: Links added.
[2020-01-21] MEDS ORDERED: CYANOCOBALAMIN 500 MCG TAB PO ONE (13:15)
--- NOTE | 2020-01-21 19:30 | NUR ---
Opening Shift Note Assumed care of patient, awake and alert. No S/S of distress/SOB or pain. Instructed on POC and to call for assist PRN, will continue to monitor for changes Q1hr and PRN.
[2020-01-21 19:45] LABS: Urine Bacteria MOD /hpf (None Seen); Urine Blood Negative /uL (Negative); Urine Specific Gravity 1.014 (1.001-1.035); Urine WBC 262 /hpf (0 - 3)
[2020-01-21] MEDS ORDERED: BUDESONIDE (INHALATION) 0.5 MG/2 ML NEB NEB SCH (22:00)
[2020-01-21] MEDS: PRAVASTATIN SODIUM 20 MG TAB PO SCH (22:01)
[2020-01-21] MEDS: DONEPEZIL HYDROCHLORIDE 5 MG TAB PO SCH (22:02)
[2020-01-21] MEDS: BUDESONIDE (INHALATION) 180 MCG IH IN SCH (22:11)
[2020-01-22 05:00] VITALS: BP 124/64
[2020-01-22] MEDS: ACCU-CHEK COMFORT CURVE STRIP VI SCH ×4 (06:13→22:36)
[2020-01-22] MEDS: InsuLIN REG 1unit/0.01ml Soln (100units/ml) SC SCH ×4 (06:13→22:41)
[2020-01-22] MEDS: CARBIDOPA W LEVODOPA 25/100mg TABLET PO SCH ×3 (06:13→22:36)
[2020-01-22 06:20] LABS: Basophils # (auto) 0 10 ^3/uL (0-0.2); Basophils % (auto) 0.2 % (0.0-2.0); Eosinophils # (auto) 0 10 ^3/uL (0-0.8); Eosinophils % (auto) 0.2 % (0.0-7.0); Hematocrit 39.1 % (41.0-53.0); Hemoglobin 13.2 g/dL (13.5-17.5); Lymphocytes # (auto) 0.7 10 ^3/uL (0.4-5.4); Lymphocytes % (auto) 5.3 % (10.0-50.0); Mean Corpuscular Hemoglobin 28.7 pg (28.0-32.0); Mean Corpuscular Hgb Conc. 33.7 g/dL (32.0-36.0); Mean Corpuscular Volume 85.3 fL (80.0-100.0); Monocytes # (auto) 0.8 10 ^3/uL (0-1.3); Monocytes % (auto) 6.3 % (0.0-12.0); Neutrophils # (auto) 11.2 10 ^3/uL (1.6-8.6); Nucleated Red Blood Cells % 0.1 %; Platelet Count (auto) 203 10^3/uL (140-450); Red Blood Cells 4.58 10^6/uL (4.5-5.90); Red Cell Distribution Width 13.8 % (11.8-14.3); White Blood Cell 12.7 10^3/uL (4.4-10.8)
[2020-01-22 06:28] LABS: Chloride 106 mmol/L (98-107); Potassium 4.2 mmol/L (3.5-5.1); Sodium 139 mmol/L (136-145)
[2020-01-22 06:35] LABS: Alanine Aminotransferase < 6 U/L (16-61); Albumin 2.5 g/dL (3.4-5.0); Alkaline Phosphatase 65 U/L (45-117); Anion Gap 7 (5-15); Aspartate Aminotransferase 9 U/L (15-37); BUN/Creatinine Ratio 24.5; Bilirubin, Total 0.4 mg/dL (0.2-1.0); Blood Urea Nitrogen 25 mg/dL (7-18); Calcium 8.5 mg/dL (8.5-10.1); Carbon Dioxide 26 mmol/L (21-32); GFR African American 90 mL/min; GFR Non-African American 74 mL/min; Glucose 206 mg/dL (74-106); Total Protein 5.6 g/dL (6.4-8.2)
[2020-01-22] MEDS: BUDESONIDE (INHALATION) 180 MCG IH IN SCH ×2 (07:32→22:35)
[2020-01-22] MEDS: ALBUTEROL SULF HFA 90MCG INH 200DOSE IN SCH ×3 (07:32→22:35)
[2020-01-22 09:04] VITALS: BP 108/60
[2020-01-22] MEDS: DexAMETHasone SOD PHOS 10MG/1ML VIAL INJ IV SCH (10:00)
[2020-01-22] MEDS: DOXYCYCLINE 100MG/250ML 250 ML IV SCH (10:01)
[2020-01-22] MEDS: ENOXAPARIN SOD 40 MG/0.4 ML SYRINGE SC SCH (10:01)
[2020-01-22] MEDS: CHOLECALCIFEROL (VITD3) 2,000 UNIT CAP PO SCH (10:01)
[2020-01-22] MEDS: FAMOTIDINE 20 MG TAB PO SCH ×2 (10:02→22:36)
[2020-01-22] MEDS: CYANOCOBALAMIN 500 MCG TAB PO SCH (10:03)
[2020-01-22] MEDS: ASCORBIC ACID 1,000 MG TAB PO SCH (10:03)
--- NOTE | 2020-01-22 10:30 | NUR ---
IV removal IV not patent and removed with clean sterile technique, catheter fully intact. Pressure dressing applied to site. Patient tolerated well. IV insertion IV access obtained, via clean sterile technique by inserting 22 gauge catheter at right forearm after 2 attempt(s). IV secured properly. No trauma to site. Patient tolerated procedure well.
[2020-01-22 12:18] VITALS: BP 131/71
[2020-01-22] MEDS ORDERED: cefTRIAXone 1GM/50ML D5W 50 ML IV ONE (13:00)
[2020-01-22 17:00] VITALS: BP 129/69
[2020-01-22] MEDS: DONEPEZIL HYDROCHLORIDE 5 MG TAB PO SCH (22:35)
[2020-01-22] MEDS: PRAVASTATIN SODIUM 20 MG TAB PO SCH (22:36)
[2020-01-23] MEDS: ALBUTEROL SULF HFA 90MCG INH 200DOSE IN SCH ×3 (06:00→22:07)
[2020-01-23] MEDS: CARBIDOPA W LEVODOPA 25/100mg TABLET PO SCH ×3 (06:54→22:00)
[2020-01-23] MEDS: ACCU-CHEK COMFORT CURVE STRIP VI SCH ×4 (06:55→22:47)
[2020-01-23 06:57] VITALS: BP 142/77
[2020-01-23] MEDS: InsuLIN REG 1unit/0.01ml Soln (100units/ml) SC SCH ×4 (07:02→22:52)
--- NOTE | 2020-01-23 08:00 | NUR ---
ASSESSMENT NOTE PT IS ALERT ORIENTED X3, FORGETFULLY ON TIMES, ABLE TO VERBALIS HIS DEMANDS, ASSISTED ON REPOSITIONING EVERY 2 HRS, HEAD OF BED ELEVATED FOR ASPIRATION PRECAUTIONS, OXYGEN 3 L NC, CONTINUE ON CONTACT ISOLATION FOR COVID AT ALL TIMES, CALL LIGHT WITHIN REACH
[2020-01-23] MEDS: cefTRIAXone 1GM/50ML D5W 50 ML IV SCH (09:06)
[2020-01-23] MEDS: ASCORBIC ACID 1,000 MG TAB PO SCH (09:07)
[2020-01-23] MEDS: FAMOTIDINE 20 MG TAB PO SCH (09:07)
[2020-01-23] MEDS: DexAMETHasone 4 MG TAB PO SCH (09:07)
[2020-01-23] MEDS: CHOLECALCIFEROL (VITD3) 2,000 UNIT CAP PO SCH (09:07)
[2020-01-23] MEDS: CYANOCOBALAMIN 500 MCG TAB PO SCH (09:07)
[2020-01-23] MEDS: ENOXAPARIN SOD 40 MG/0.4 ML SYRINGE SC SCH (09:08)
[2020-01-23] MEDS: BUDESONIDE (INHALATION) 180 MCG IH IN SCH ×2 (09:28→22:07)
[2020-01-23] MEDS: ACETAMINOPHEN 325 MG TAB PO PRN ×2 (10:25→17:49)
--- NOTE | 2020-01-23 10:30 | NUR ---
A COMPLETE LNEN CHANGE, REPOSITION PT, KEPT DRY AND CLEAN
[2020-01-23 10:34] VITALS: BP 150/78
--- NOTE | 2020-01-23 12:08 | NUR ---
DR LABOY AT BED SIDE FOLLOWING UP ON PT, MADE AWARE THAT PT HAS A COVID COUGH
[2020-01-23] MEDS ORDERED: PANTOPRAZOLE 40 MG/10 ML VIAL INJ IV ONE (12:30)
[2020-01-23] MEDS: guaiFENesin-DM 100/10mg/5ml SYR PO PRN (12:45)
--- NOTE | 2020-01-23 14:00 | NUR ---
REPOSITION PT EVERY 2 HOURS AT ALL TIMES
--- NOTE | 2020-01-23 14:25 | NUR ---
assessment Patient is a 84 year old male who is confused. Per patients son Mathew prior to admission patient resided at [facility] and needed assistance. Per Mathew patient to return to [facility] on discharge and [facility] or he will transport patient back. Patients PCP is Dr Smith. Mathew is patients POA. Patient has a wheelchair and fww at the facility. Patient is Covid positive. I informed Mathew I will continue to monitor and follow up as appropriate for any post discharge needs. Mathew verbalized understanding and agreed to discharge plan back to [facility]. Addendum: 01/23/20 at 1427 by Marge BOYD Amended: Links added.
--- NOTE | 2020-01-23 16:20 | NUR ---
INCONTINENT PT IS INCONTINENT IN URINE, KEPT CLEAN AND DRY AT ALL TIMES
--- NOTE | 2020-01-23 16:21 | NUR ---
A COMPLETE LINEN CHANGE DONE
[2020-01-23 16:56] VITALS: BP 114/60
--- NOTE | 2020-01-23 17:49 | NUR ---
BM PT HAS A SECOND BM, KEPT DRY AND CLEAN
--- NOTE | 2020-01-23 18:30 | NUR ---
PT CONTINUE STABLE, SLEEPING, REFUSED TO EAT DINNER, CONTINUE MONITORING
--- NOTE | 2020-01-23 19:20 | NUR ---
Opening Shift Note Assumed care of patient, awake sitting up in bed, alert to self. No S/S of distress/SOB or pain. Instructed on POC and to call for assistance PRN, bed is locked in lowest position with side rails up x2 for safety. Will continue to monitor for changes Q1hr and PRN.
[2020-01-23 22:00] VITALS: BP 124/60
[2020-01-23] MEDS: PRAVASTATIN SODIUM 20 MG TAB PO SCH (22:00)
[2020-01-23] MEDS: DONEPEZIL HYDROCHLORIDE 5 MG TAB PO SCH (22:00)
[2020-01-24] VITALS (7 sets, daily range): BP systolic 94–143; BP diastolic 60–75
--- NOTE | 2020-01-24 03:07 | NUR ---
PATIENTS O2 SATURATING AT 85%-88% ON 3L NASAL CANNULA. INCREASED RATE TO 6L WITH NO CHANGE IN SATURATION. PATIENT IS NOW ON 12L OXYMIZER AND SATURATING BETWEEN 90%-94%. WILL CONTINUE TO MONITOR. RT WAS PAGED.
[2020-01-24 06:18] LABS: Basophils # (auto) 0 10 ^3/uL (0-0.2); Basophils % (auto) 0.2 % (0.0-2.0); Eosinophils # (auto) 0 10 ^3/uL (0-0.8); Eosinophils % (auto) 0.1 % (0.0-7.0); Hematocrit 38.9 % (41.0-53.0); Lymphocytes # (auto) 0.4 10 ^3/uL (0.4-5.4); Lymphocytes % (auto) 4.5 % (10.0-50.0); Mean Corpuscular Hemoglobin 28.7 pg (28.0-32.0); Mean Corpuscular Hgb Conc. 33.4 g/dL (32.0-36.0); Mean Corpuscular Volume 85.8 fL (80.0-100.0); Monocytes # (auto) 0.6 10 ^3/uL (0-1.3); Monocytes % (auto) 6.2 % (0.0-12.0); Neutrophils # (auto) 8.7 10 ^3/uL (1.6-8.6); Platelet Count (auto) 200 10^3/uL (140-450); Red Blood Cells 4.54 10^6/uL (4.5-5.90); Red Cell Distribution Width 14.1 % (11.8-14.3); White Blood Cell 9.8 10^3/uL (4.4-10.8)
[2020-01-24 06:41] LABS: Potassium 4.3 mmol/L (3.5-5.1)
[2020-01-24 06:48] LABS: BUN/Creatinine Ratio 23.6; Calcium 8.8 mg/dL (8.5-10.1)
[2020-01-24] MEDS: CARBIDOPA W LEVODOPA 25/100mg TABLET PO SCH ×3 (06:50→22:18)
[2020-01-24] MEDS: ACCU-CHEK COMFORT CURVE STRIP VI SCH ×4 (06:50→22:18)
[2020-01-24] MEDS: InsuLIN REG 1unit/0.01ml Soln (100units/ml) SC SCH ×4 (07:09→22:00)
[2020-01-24] MEDS: ALBUTEROL SULF HFA 90MCG INH 200DOSE IN SCH ×4 (07:45→22:48)
[2020-01-24] MEDS: BUDESONIDE (INHALATION) 180 MCG IH IN SCH ×3 (07:45→22:48)
--- NOTE | 2020-01-24 08:00 | NUR ---
ASSESSMENT NOTE PT CONTINUE ALERT ORIENTED X3, SELF, PLACE, SITUATION, FORGETFUL ON TIMES, ABLE TO VERBALIS HIS NEEDS NEED, PT IN PRONE POSITION, PER SLIP SEAT COVERERINDUSTRIAL PSYCHOLOGIST, PT IS BEEN DESATURATED TO 88 %, OXYGEN 15 L OXYMIZER, PAIN 0/10, PT IS COOPERATING, CONTINUE MONITORING PT, SAT AT THIS TIME 98%
[2020-01-24] MEDS: cefTRIAXone 1GM/50ML D5W 50 ML IV SCH (09:55)
[2020-01-24] MEDS: ENOXAPARIN SOD 40 MG/0.4 ML SYRINGE SC SCH (09:55)
[2020-01-24] MEDS: PANTOPRAZOLE 40 MG/10 ML VIAL INJ IV SCH (09:55)
--- NOTE | 2020-01-24 10:16 | NUR ---
PT CONTINUE ON PRONE POSITION AT 100 %
--- NOTE | 2020-01-24 11:32 | NUR ---
Nutrition Followup Notes Pt wt is 91.4 kg/m2 Pt is positive for COVID. Pt is with a CCHO 60g diet, appetite is good aeb ave 88% PO intake over 4 meals per RN doc. Est [employer] needs ABW 79 [id number] kcals (23-25 kcal/kgABW), Est Protein needs: 79-86 gms/day (1.0-1.1gm/kgABW). Will continue to monitor and reassess prn. LABS: BUN 25 H, Gluc 185 H, Alb 2.5 L GI: Pt is incontinent per RN doc. BS: 18 mod risk. Refer to wound assessment report for full details. PES: 1) Altered nutrition related lab values r.t current chronic medical condition aeb elev BUN hyperglycemia mod hypoalb 2) Decreased nutrient needs r/t adiposity aeb pt`s high BMI of 31.6 kgm2 Comments Will continue to monitor PO status, skin status, pertinent labs and weight trends. Will f/u in 3-5 days. 1) refer to CDE on DC 2) consider MVI/C bid 3) continue current plan of care
--- NOTE | 2020-01-24 12:00 | NUR ---
REPOSITION PT FROM PRONE POSITION TO SITTING POSITION, SAT AT 93%, A COMPLETE LINEN CHANGE DONE, WASHED THE PERINEAL WELL, PAT IT TO DRY, BARRIER CREAM APPLIED.
[2020-01-24] MEDS: DexAMETHasone 4 MG TAB PO SCH (13:22)
[2020-01-24] MEDS: CYANOCOBALAMIN 500 MCG TAB PO SCH (13:22)
[2020-01-24] MEDS: CHOLECALCIFEROL (VITD3) 2,000 UNIT CAP PO SCH (13:23)
[2020-01-24] MEDS: ASCORBIC ACID 1,000 MG TAB PO SCH (13:23)
--- NOTE | 2020-01-24 14:30 | NUR ---
DR LABOY AT BED SIDE FOLLOWING UP ON PT, MADE AWARE OF PATIENT'S OXYGENATION, NEW ORDERS OBTAIN, PAGE PHYSICAL THERAPY
[2020-01-24] MEDS ORDERED: ZINC SULFATE 220mg CAP or TAB PO ONE (14:45)
[2020-01-24] MEDS ORDERED: DexAMETHasone SOD PHOS 10MG/1ML VIAL INJ IV ONE (14:45)
--- NOTE | 2020-01-24 17:58 | NUR ---
PT CONTINUE STABLE, SAT AT 91% TO 93%, OCCASIONAL NON PRODUCTIVE COUGH NOTED
--- NOTE | 2020-01-24 18:40 | NUR ---
PT CONTINUE STABLE, CONTINUE MONITORING
--- NOTE | 2020-01-24 19:30 | NUR ---
OPENING SHIFT NOTE: Assumed care of patient. Patient awake and alert. No s/s of respiratory distress. Respirations are regular and non-labored. Spo2 94% on 15 LPM Oxymizer. Patient denies any pain at this time. Bed in lowest locked position, two side rails raised, bed alarm is ON for patient safety, call padilla is within reach. Linen changed. Instructed on POC and encouraged to call for assistance as needed. Patient verbalized understanding. Will continue to monitor Q1H/ PRN.
[2020-01-24] MEDS: DONEPEZIL HYDROCHLORIDE 5 MG TAB PO SCH (22:17)
[2020-01-24] MEDS: PRAVASTATIN SODIUM 20 MG TAB PO SCH (22:17)
[2020-01-25] VITALS (10 sets, daily range): BP systolic 100–126; BP diastolic 42–71
[2020-01-25] MEDS: CARBIDOPA W LEVODOPA 25/100mg TABLET PO SCH ×3 (06:12→22:20)
[2020-01-25] MEDS: guaiFENesin-DM 100/10mg/5ml SYR PO PRN (06:12)
[2020-01-25] MEDS: ACCU-CHEK COMFORT CURVE STRIP VI SCH ×4 (06:47→22:21)
[2020-01-25] MEDS: InsuLIN REG 1unit/0.01ml Soln (100units/ml) SC SCH ×4 (06:48→22:29)
[2020-01-25] MEDS: ALBUTEROL SULF HFA 90MCG INH 200DOSE IN SCH ×3 (06:51→23:09)
[2020-01-25] MEDS: BUDESONIDE (INHALATION) 180 MCG IH IN SCH ×2 (06:51→23:09)
--- NOTE | 2020-01-25 07:15 | NUR ---
Care endorse to day shift nurse.
--- NOTE | 2020-01-25 07:30 | NUR ---
TELE PT TRANSFERRED TO [facility] KEVINYODIT transferred to [facility] via gurney on property assessment monitor, and portable 02. Patient transferred to bed 266, connected to unit monitoring, and oxygen. Patient oriented to Vilma morfin RN, unit, room, bed, and unit policies regarding patient care and visiting hours. All questions and concerns addressed, patient verbalized understanding. Physical assessment completed. Patient repositioned on side. Tolerated activity well. Oxygen saturation maintaining 82-86% on high flow. RT at bedside playing with oxygen settings. Alarms in place. Patient eating breakfast with minimal assistance. Bed locked in lowest position, call light within reach. Patient instructed to call for assistance. Patient verbalized understanding. Will continue to monitor.
--- NOTE | 2020-01-25 07:30 | NUR ---
Transfer Patient transferred to [facility] room 266 via [facility]. Report given to DEONDRE Esparza. Vitals T 98.2 F, RR 22 bpm, HR 82 bpm, SpO2 85% on 15 lmp Oxymizer.
[2020-01-25 07:47] LABS: Basophils # (auto) 0 10 ^3/uL (0-0.2); Basophils % (auto) 0.2 % (0.0-2.0); Eosinophils # (auto) 0 10 ^3/uL (0-0.8); Hematocrit 41.9 % (41.0-53.0); Lymphocytes # (auto) 0.2 10 ^3/uL (0.4-5.4); Lymphocytes % (auto) 2.5 % (10.0-50.0); Mean Corpuscular Hemoglobin 28.5 pg (28.0-32.0); Mean Corpuscular Hgb Conc. 33.4 g/dL (32.0-36.0); Mean Corpuscular Volume 85.5 fL (80.0-100.0); Monocytes # (auto) 0.4 10 ^3/uL (0-1.3); Monocytes % (auto) 4.6 % (0.0-12.0); Neutrophils % (auto) 92.7 % (37.0-80.0); Platelet Count (auto) 223 10^3/uL (140-450); Red Cell Distribution Width 13.9 % (11.8-14.3); White Blood Cell 8.7 10^3/uL (4.4-10.8)
[2020-01-25 08:03] LABS: Albumin 2.4 g/dL (3.4-5.0); Calcium 9.1 mg/dL (8.5-10.1); Potassium 4.2 mmol/L (3.5-5.1)
[2020-01-25 08:07] LABS: BUN/Creatinine Ratio 27.9; Bilirubin, Total 0.6 mg/dL (0.2-1.0); Total Protein 6.2 g/dL (6.4-8.2)
[2020-01-25] MEDS: CYANOCOBALAMIN 500 MCG TAB PO SCH (09:54)
[2020-01-25] MEDS: ASCORBIC ACID 1,000 MG TAB PO SCH (09:54)
[2020-01-25] MEDS: ENOXAPARIN SOD 40 MG/0.4 ML SYRINGE SC SCH (09:54)
[2020-01-25] MEDS: DexAMETHasone SOD PHOS 10MG/1ML VIAL INJ IV SCH (09:54)
[2020-01-25] MEDS: ZINC SULFATE 220mg CAP or TAB PO SCH (09:54)
[2020-01-25] MEDS: CHOLECALCIFEROL (VITD3) 2,000 UNIT CAP PO SCH (09:54)
[2020-01-25] MEDS: PANTOPRAZOLE 40 MG/10 ML VIAL INJ IV SCH (09:54)
[2020-01-25] MEDS: cefTRIAXone 1GM/50ML D5W 50 ML IV SCH (09:55)
--- NOTE | 2020-01-25 10:30 | NUR ---
IV REMOVAL IV left wrist DC'd with clean sterile technique, catheter fully intact. Pressure dressing applied to site. Patient tolerated well.
--- NOTE | 2020-01-25 11:00 | NUR ---
IV INSERTION IV access obtained, via clean sterile technique by inserting 22 gauge catheter at left ac after 3 attempt(s). IV secured properly. No trauma to site. Patient tolerated well.
--- NOTE | 2020-01-25 11:12 | NUR ---
ELIMINATION PATIENT INCONTINENT OF URINE. ONE YELLOW VOID NOTED. HILARIA CARE AND CARE PAD CHANGE PERFORMED. PT ABLE TO ASSIST WITH TURNING AND REPOSITIONING. TOLERATED ACTIVITY FAIR. VS REMAIN NORMAL. SLIGHT DESATURATION INTO 80'S WITH ACTIVITY.
--- NOTE | 2020-01-25 12:00 | NUR ---
INTAKE PT REFUSING TO EAT LUNCH AT THIS TIME. PT WANTING TO SLEEP. REPOSITIONED IN BED, CALL LIGHT WITHIN REACH. WILL CONTINUE TO MONITOR.
--- NOTE | 2020-01-25 13:50 | NUR ---
EPISODE OF CONFUSION PT AWAKENS FROM SLEEP, PULLING OFF HIGH FLOW AND PULLING AT EKG CORDS. PT REORIENTED TO SELF, TIME, LOCATION, AND SITUATION. HIGH FLOW NASAL CANNULA PLACED BACK ON. DESATURATION TO 85% DURING TIME OXYGEN WAS OFF. OXYGEN SATURATION INCREASED BACK TO 90% AFTER A COUPLE MINUTES. PT RESTING WITH MOUTH OPEN. NO DISTRESS NOTED.
--- NOTE | 2020-01-25 14:05 | NUR ---
FAMILY PT SON CALLED FOR UPDATE. PASSWORD PROVIDED. ALL QUESTIONS AND CONCERNS ADDRESSED.
--- NOTE | 2020-01-25 15:02 | NUR ---
ELIMINATION/ACTIVITY PATIENT INCONTINENT OF URINE. ONE YELLOW VOID NOTED. HILARIA CARE AND CARE PAD CHANGE PERFORMED. SCROTUM IS ERYTHREMIC AND PAINFUL TO TOUCH. SOME MACERATION NOTED DUE TO URINE. PT ABLE TO ASSIST WITH TURNING AND REPOSITIONING. TOLERATED ACTIVITY FAIR. VS REMAIN NORMAL. PT DESATURATION TO 85'S WITH COUGHING. RETURNED TO 90% OXYGEN SATURATION. CALL LIGHT WITHIN REACH.
--- NOTE | 2020-01-25 17:50 | NUR ---
ELIMINATION PATIENT INCONTINENT OF URINE. ONE YELLOW VOID NOTED. HILARIA CARE AND CARE PAD CHANGE PERFORMED. PT ABLE TO ASSIST WITH TURNING AND REPOSITIONING. TOLERATED ACTIVITY FAIR. VS REMAIN NORMAL. PT EATING DINNER.
[2020-01-25] MEDS ORDERED: FUROSEMIDE 40 MG/4 ML VIAL IV ONE (18:00)
--- NOTE | 2020-01-25 18:00 | NUR ---
ROUNDS ROUNDING AT BEDSIDE. MD ORDERED FOR LASIX, HOWARD CATHETER, AND BLOOD CONSENT TO BE OBTAINED. MD ATTEMPTED TO REACH FAMILY BUT UNABLE TO. WILL ATTEMPT CONTACT TOMORROW.
--- NOTE | 2020-01-25 18:31 | NUR ---
Acevedo catheter insertion Patient assessed and determined to be in need of Acevedo catheter. Order obtained from Nabeel ALMONTE for measurement of accurate output. Patient educated on catheter and reason for insertion. All questions answered. Acevedo catheter 16 gauge Nauruan inserted with clean sterile technique. Patient tolerated well.
--- NOTE | 2020-01-25 19:30 | NUR ---
REPORT REPORT GIVEN TO MARIA ALEJANDRA MENDOSA, CARE ENDORSED.
--- NOTE | 2020-01-25 20:00 | NUR ---
Opening Shift Note Assumed care of patient, awake and alert. No S/S of distress/SOB or pain. Instructed on POC and to call for assist PRN, will continue to monitor for changes. Pt has dementia, forgetful, frequent reorientation necessary. Resting in bed at this time. Acevedo to gravity. Covid Isolation in place.
[2020-01-25] MEDS: DONEPEZIL HYDROCHLORIDE 5 MG TAB PO SCH (22:19)
[2020-01-25] MEDS: PRAVASTATIN SODIUM 20 MG TAB PO SCH (22:20)
[2020-01-26] VITALS (17 sets, daily range): BP systolic 98–143; BP diastolic 45–89
--- NOTE | 2020-01-26 | NUR ---
Pt labored and struggling, notified RT. Pt went on bipap and O2 sat much better. Will continue to monitor.
--- NOTE | 2020-01-26 | NUR ---
Agitation with bipap, mittens applied.
[2020-01-26] MEDS ORDERED: LORazepam 2MG/ML-1ML VIAL IV ONE (03:15)
[2020-01-26 03:51] LABS: Basophils # (auto) 0 10 ^3/uL (0-0.2); Basophils % (auto) 0.1 % (0.0-2.0); Eosinophils # (auto) 0 10 ^3/uL (0-0.8); Eosinophils % (auto) 0.1 % (0.0-7.0); Hematocrit 43.5 % (41.0-53.0); Hemoglobin 14.5 g/dL (13.5-17.5); Lymphocytes # (auto) 0.3 10 ^3/uL (0.4-5.4); Lymphocytes % (auto) 3.4 % (10.0-50.0); Mean Corpuscular Hemoglobin 28.4 pg (28.0-32.0); Mean Corpuscular Hgb Conc. 33.4 g/dL (32.0-36.0); Mean Corpuscular Volume 85.1 fL (80.0-100.0); Monocytes # (auto) 0.6 10 ^3/uL (0-1.3); Monocytes % (auto) 5.4 % (0.0-12.0); Neutrophils # (auto) 9.3 10 ^3/uL (1.6-8.6); Nucleated Red Blood Cells % 0.1 %; Platelet Count (auto) 246 10^3/uL (140-450); Red Blood Cells 5.11 10^6/uL (4.5-5.90); Red Cell Distribution Width 13.9 % (11.8-14.3); White Blood Cell 10.3 10^3/uL (4.4-10.8)
--- NOTE | 2020-01-26 04:00 | NUR ---
Pt restless, called hospitalist, one time dose ativan ordered.
[2020-01-26 04:09] LABS: Albumin 2.4 g/dL (3.4-5.0); Calcium 9.1 mg/dL (8.5-10.1); Potassium 4.2 mmol/L (3.5-5.1)
[2020-01-26 04:14] LABS: BUN/Creatinine Ratio 28.6; Bilirubin, Total 0.5 mg/dL (0.2-1.0); Total Protein 6.7 g/dL (6.4-8.2)
--- NOTE | 2020-01-26 04:30 | NUR ---
Pt was able to calm down on his own, did not give ativan at this time.
[2020-01-26] MEDS: ALBUTEROL SULF HFA 90MCG INH 200DOSE IN SCH ×3 (06:16→22:00)
[2020-01-26] MEDS: BUDESONIDE (INHALATION) 180 MCG IH IN SCH ×2 (06:16→22:00)
--- NOTE | 2020-01-26 06:33 | NUR ---
Respiratory note: RECEIVED PATIENT ON B3 BIPAP FITTED WITH A MEDIUM FULL FACE MASK AND BEING VENTILATED WITH THE CHARTED SETTINGS. SPO2 90%, LUNG SOUNDS DIM T/O. NO REDNESS OR BREAKDOWN NOTED ON SKIN. PATIENT IS ASLEEP AND TOLERATING BIPAP WELL, NO CHANGES MADE. BIPAP PLUGGED INTO RED OUTLET AND ALL ALARMS ARE SET AND AUDIBLE. WILL CONTINUE TO ASSESS PATIENT WELL BIPAP FUNCTION.
[2020-01-26] MEDS: cefTRIAXone 1GM/50ML D5W 50 ML IV SCH (08:33)
[2020-01-26] MEDS: PANTOPRAZOLE 40 MG/10 ML VIAL INJ IV SCH (08:33)
[2020-01-26] MEDS: CHOLECALCIFEROL (VITD3) 2,000 UNIT CAP PO SCH ×2 (08:34→09:34)
[2020-01-26] MEDS: ENOXAPARIN SOD 40 MG/0.4 ML SYRINGE SC SCH (08:34)
[2020-01-26] MEDS: ZINC SULFATE 220mg CAP or TAB PO SCH ×2 (08:34→09:33)
[2020-01-26] MEDS: DexAMETHasone SOD PHOS 10MG/1ML VIAL INJ IV SCH (08:34)
[2020-01-26] MEDS: ASCORBIC ACID 1,000 MG TAB PO SCH ×2 (08:35→09:34)
[2020-01-26] MEDS: CYANOCOBALAMIN 500 MCG TAB PO SCH ×2 (08:35→09:33)
[2020-01-26] MEDS: CARBIDOPA W LEVODOPA 25/100mg TABLET PO SCH ×3 (08:56→22:00)
[2020-01-26] MEDS: ACCU-CHEK COMFORT CURVE STRIP VI SCH ×4 (08:56→23:12)
--- NOTE | 2020-01-26 09:30 | NUR ---
Reposition and patient had desaturation from 90% to 84-85%, paged RT and RT at the bedside, will monitor, tried to adjust neck and mask, leak around 10. Will continue setting and monitor. Will keep patient NPO. Wasted AM medications due to desaturation and unable to remove the mask. Patient also only open his eyes, no follow direction.
--- NOTE | 2020-01-26 10:26 | NUR ---
Mid line nurse at the bedside. Found that patient has bleeding nose, paged Dr. Lees, waiting MD to call back.
--- NOTE | 2020-01-26 10:26 | NUR ---
Pt remains on bipap. A bit agitated with mask but no other changes. Report given to AM shift, care endorsed.
[2020-01-26] MEDS: InsuLIN REG 1unit/0.01ml Soln (100units/ml) SC SCH ×4 (10:27→22:00)
--- NOTE | 2020-01-26 10:27 | NUR ---
Midline Placement: Patient educated on need for midline placement. All risks and benefits explained and all questions and concerns addresses prior to procedure. 18g/10cm midline inserted via LEFT CEPHALIC vein using Ultrasound. Sterile technique utilized. Blood return obtained from THE lumen and flushed easily with NS using proper technique. Midline secured with saline lock; biodisc and occlusive dressing applied. Primary RN notified. Midline lot # [id number].
--- NOTE | 2020-01-26 12:10 | NUR ---
Dr. Lees at the bedside, seen and examined patient at this time, will give lasix after finish with transfusion of Plasma as ordered. Will keep patient NPO, informed MD that patient had bleeding nose , not active, right now it already stopped.
--- NOTE | 2020-01-26 12:13 | NUR ---
Blood sugar 236, hold insulin due to NPO, will continue to monitor and care.
[2020-01-26] MEDS ORDERED: LORazepam 2MG/ML-1ML VIAL IV PRN (12:15)
[2020-01-26] MEDS ORDERED: FUROSEMIDE 20 MG/2 ML VIAL IV ONE ×2 (12:15→17:15)
--- NOTE | 2020-01-26 13:00 | NUR ---
Plasma still not available at this time.
--- NOTE | 2020-01-26 14:40 | NUR ---
RT at the bedside, patient still unable to take off the Bipap, while having activities with Bipap, his O2 saturation 82-85%. When resting with Bipap O2 saturation 88-92%. Will continue NPO. Will continue to monitor and care. Continue Bipap O2 100% I:E 12:5 rate 12. STV 600-700 ml. No fever noted. Waiting for Plasma, plan to give Lasix after finishing of transfusion of Plasmas as ordered.
--- NOTE | 2020-01-26 15:15 | NUR ---
Received a call from his son, password provided, updated patient's condition and plan of care.
--- NOTE | 2020-01-26 17:00 | NUR ---
Desaturation 80-81%, informed Dr. Lees, will give Lasix at this time. Paged and spoke to RT aware.
--- NOTE | 2020-01-26 17:15 | NUR ---
RT at the bedside.
--- NOTE | 2020-01-26 17:45 | NUR ---
Dr. Lees at the bedside, will give another 20 mg of Lasix IV after Plasma completed.
--- NOTE | 2020-01-26 18:45 | NUR ---
After first Lasix given, got urine output 400 ml. Plasma completed at this time, second dose of Lasix given as ordered, will continue to monitor and care. Received a call from his son, password provided, updated patient's condition and plan of care.
[2020-01-26] MEDS: PRAVASTATIN SODIUM 20 MG TAB PO SCH (22:00)
[2020-01-26] MEDS: DONEPEZIL HYDROCHLORIDE 5 MG TAB PO SCH (22:00)
--- NOTE | 2020-01-26 23:50 | NUR ---
Respiratory note: PT'S 02 STATUS CONTINUES TO DECLINE. SPO2 80% ON 100% FIO2. STRUCTURES ASSEMBLER JESUS MADE AWARE. RN IS AWARE. WILL KEEP PT ON SAME BIPAP SETTINGS AND CONTINUE TO MONITOR PT.
[2020-01-27] VITALS (13 sets, daily range): BP systolic 111–145; BP diastolic 51–74
[2020-01-27] MEDS: InsuLIN REG 1unit/0.01ml Soln (100units/ml) SC SCH ×3 (07:00→18:25)
[2020-01-27] MEDS: ACCU-CHEK COMFORT CURVE STRIP VI SCH ×3 (07:00→18:24)
--- NOTE | 2020-01-27 07:00 | NUR ---
Pt alert at this time. Desat 3 times this shift into the 70's when Bipap mask was removed. After 20 min, pt finally gets back to 88-90%. Mittens were in place to keep from removing mask. No S/S of distress. Midline remains patent as well as Acevedo. Report given to AM shift, care endorsed.
[2020-01-27] MEDS: CARBIDOPA W LEVODOPA 25/100mg TABLET PO SCH ×3 (08:02→22:00)
[2020-01-27 08:36] LABS: Basophils # (auto) 0 10 ^3/uL (0-0.2); Eosinophils # (auto) 0 10 ^3/uL (0-0.8); Eosinophils % (auto) 0.1 % (0.0-7.0); Hematocrit 43.2 % (41.0-53.0); Hemoglobin 14.6 g/dL (13.5-17.5); Lymphocytes # (auto) 0.4 10 ^3/uL (0.4-5.4); Lymphocytes % (auto) 3.7 % (10.0-50.0); Mean Corpuscular Hemoglobin 28.6 pg (28.0-32.0); Mean Corpuscular Hgb Conc. 33.8 g/dL (32.0-36.0); Mean Corpuscular Volume 84.6 fL (80.0-100.0); Monocytes # (auto) 0.4 10 ^3/uL (0-1.3); Monocytes % (auto) 3.7 % (0.0-12.0); Neutrophils # (auto) 9.8 10 ^3/uL (1.6-8.6); Neutrophils % (auto) 92.5 % (37.0-80.0); Platelet Count (auto) 273 10^3/uL (140-450); Red Blood Cells 5.11 10^6/uL (4.5-5.90); Red Cell Distribution Width 13.9 % (11.8-14.3); White Blood Cell 10.6 10^3/uL (4.4-10.8)
--- NOTE | 2020-01-27 08:49 | NUR ---
FAMILY DAUGHTER ABRAN UPDATED ON PATIENT STATUS. ALL QUESTIONS AND CONCERNS ADDRESSED AT THIS TIME
[2020-01-27 09:02] LABS: Albumin 2.3 g/dL (3.4-5.0); Calcium 9.3 mg/dL (8.5-10.1)
[2020-01-27 09:06] LABS: BUN/Creatinine Ratio 34.7; Bilirubin, Total 0.5 mg/dL (0.2-1.0); Total Protein 6.6 g/dL (6.4-8.2)
[2020-01-27] MEDS: PANTOPRAZOLE 40 MG/10 ML VIAL INJ IV SCH (09:53)
[2020-01-27] MEDS: BUDESONIDE (INHALATION) 180 MCG IH IN SCH ×2 (09:53→22:18)
[2020-01-27] MEDS: cefTRIAXone 1GM/50ML D5W 50 ML IV SCH (09:53)
[2020-01-27] MEDS: DexAMETHasone SOD PHOS 10MG/1ML VIAL INJ IV SCH (09:53)
[2020-01-27] MEDS: ASCORBIC ACID 1,000 MG TAB PO SCH (09:54)
[2020-01-27] MEDS: ENOXAPARIN SOD 40 MG/0.4 ML SYRINGE SC SCH (09:54)
[2020-01-27] MEDS: CHOLECALCIFEROL (VITD3) 2,000 UNIT CAP PO SCH (09:54)
[2020-01-27] MEDS: CYANOCOBALAMIN 500 MCG TAB PO SCH (09:54)
[2020-01-27] MEDS: ZINC SULFATE 220mg CAP or TAB PO SCH (09:54)
--- NOTE | 2020-01-27 12:24 | NUR ---
Nutrition Followup/Consult Notes Pt wt is 90.7 kg/m2 Pt is positive for COVID. Pt is with a CCHO 60g diet, appetite has deteriorated and is poor aeb ave 42% PO intake over 6 meals per RN doc. Noted pt is with a pressure ulcer. Continue to monitor/assist pt with PO intake to meet at least 75% of meals. Refer to additional recommendations noted below under Comments. Est Energy needs ABW 79 [id number] kcals (23-25 kcal/kgABW), Est Protein needs: 79-86 gms/day (1.0-1.1gm/kgABW). Will continue to monitor and reassess prn. LABS: BUN 25 H, Gluc 185 H, Alb 2.5 L GI: Pt is incontinent per RN doc. BS: 18 mod risk. Refer to wound assessment report for full details. PES: 1) Altered nutrition related lab values r.t current chronic medical condition aeb elev BUN hyperglycemia mod hypoalb 2) Decreased nutrient needs r/t adiposity aeb pt`s high BMI of 31.6 kgm2 Comments Will continue to monitor PO status, skin status, pertinent labs and weight trends. Will f/u in 3-5 days. 1) refer to CDE on DC 2) consider a daily MVI with 500mg VitC bid 3) continue current plan of care
[2020-01-27] MEDS: ALBUTEROL SULF HFA 90MCG INH 200DOSE IN SCH ×2 (14:24→22:18)
[2020-01-27] MEDS ORDERED: PPN PER PHARMACY 0 ML IV SCH (15:00)
[2020-01-27] MEDS ORDERED: ENOXAPARIN SOD 100 MG/1 ML SYRINGE SC ONE (15:00)
--- NOTE | 2020-01-27 15:10 | NUR ---
DR. HARDIN AT BEDSIDE
--- NOTE | 2020-01-27 15:26 | NUR ---
PICC AND REMDESIVIR CONSENT OBTAINED FROM [facility] CONFIRMED WITH DEONDRE EMERSON
[2020-01-27] MEDS ORDERED: PROMETHAZINE W/CODEINE 5 ML ORAL SYRUP PO PRN (15:30)
[2020-01-27] MEDS ORDERED: DEXTROSE (50%) 50ML SYRG IV SCH (16:00)
--- NOTE | 2020-01-27 16:02 | NUR ---
SPOKE WITH PRIMARY RN KASHMIR REGARDING PICC LINE PLACEMENT AND NOTIFIED HIM I ORDERED COAGULATION LABS. LET PRIMARY RN KNOW I WILL BE PLACING PICC LINE TOMORROW THE TPN WILL NOT BE STARTED UNTIL TOMORROW IN THE PM. PATIENT CURRENTLY HAS TWO PATENT LINES FOR THE PPN AT THIS TIME.
[2020-01-27] MEDS ORDERED: REMDESIVIR 200 MG in NS 210ml LOADING DOSE ADULT IV ONE (16:30)
[2020-01-27 17:32] LABS: Magnesium 2.3 mg/dL (1.6-2.6); Phosphorus 4.3 mg/dL (2.5-4.90)
[2020-01-27] MEDS ORDERED: AMINO ACID INFUSION IN D5W 2,000 ML IV NR (20:00)
--- NOTE | 2020-01-27 20:00 | NUR ---
Opening Shift Note Assumed care of patient, awake and alert. Patient telling me he wants to go home. Informed him of his condition. Patient is isolated for Covid positive result. On BiPAP mask with settings 12/8, rate 12, FIO2 100%. Patient's saturation 87-91%. Oral care done. Patient coughs when given water - kept NPO for now. Started on IV PPN at 42ml/hr at the left upper arm midline. Full assessment done. Instructed on POC and to call for assist PRN, will continue to monitor for changes Q1hr and PRN.
[2020-01-27] MEDS: DOCUSATE SOD 100 MG CAP PO SCH (22:00)
[2020-01-28] VITALS (55 sets, daily range): BP systolic 99–150; BP diastolic 53–102
[2020-01-28] MEDS: ACCU-CHEK COMFORT CURVE STRIP VI SCH ×5 (00:16→23:34)
[2020-01-28] MEDS: InsuLIN REG 1unit/0.01ml Soln (100units/ml) SC SCH ×5 (00:20→23:32)
--- NOTE | 2020-01-28 00:55 | NUR ---
RT INFORMED OF PATIENT'S SATS 87-89%
--- NOTE | 2020-01-28 01:48 | NUR ---
RT paged: This RN covering for primary RN who is on lunch. Patient noted to deSat to 82%. RT was paged and RT at patient bedside.
--- NOTE | 2020-01-28 01:58 | NUR ---
Respiratory note: CALLED TO BEDSIDE BY RN COVERING FOR LUNCH DUE TO LOW O2 SATS. SATS CURRENTLY 81-83%. PT RESTING IN BED. SPOKE WITH HOSPITALIST JESUS ON THE PHONE REGARDING PT, NEW ORDERS RECEIVED. INCREASED SETTINGS AT THIS TIME, SATS GRADUALLY INCREASED TO 90-91%. PT STATES HE IS COLD AND ASKING FOR WATER. FEW SIPS PROVIDED WITHOUT INCIDENCE. PT COVERED UP IN BLANKETS. RN AWARE OF CHANGES.
--- NOTE | 2020-01-28 02:00 | NUR ---
BI-PAP Settings: RT at patient bedside. Hospitalist made aware of patients condition. New settings for BI-PAP initiated by RT. RN will continue to monitor and assess patient.
--- NOTE | 2020-01-28 02:49 | NUR ---
PATIENT PULLED OUT THE TUBING OF BIPAP ASKED PATIENT NOT TO TOUCH THE BIPAP TUBINGS - HE SAID YES TO PREVENT - MITTENS PLACED ON BOTH HANDS
--- NOTE | 2020-01-28 03:00 | NUR ---
RESPIRATORY SATS 94-95%
--- NOTE | 2020-01-28 04:00 | NUR ---
HYGIENE SPONGE BATH DONE LINENS CHANGED OPTIFOAM SACRAL CHANGED COVERED PATIENT WITH WARM BLANKET
[2020-01-28 05:12] LABS: Basophils # (auto) 0 10 ^3/uL (0-0.2); Basophils % (auto) 0.2 % (0.0-2.0); Eosinophils # (auto) 0 10 ^3/uL (0-0.8); Hematocrit 41.9 % (41.0-53.0); Lymphocytes # (auto) 0.3 10 ^3/uL (0.4-5.4); Lymphocytes % (auto) 4.4 % (10.0-50.0); Mean Corpuscular Hemoglobin 28.4 pg (28.0-32.0); Mean Corpuscular Hgb Conc. 33.5 g/dL (32.0-36.0); Mean Corpuscular Volume 84.9 fL (80.0-100.0); Monocytes # (auto) 0.4 10 ^3/uL (0-1.3); Monocytes % (auto) 5.4 % (0.0-12.0); Platelet Count (auto) 239 10^3/uL (140-450); Red Blood Cells 4.93 10^6/uL (4.5-5.90); White Blood Cell 7.8 10^3/uL (4.4-10.8)
[2020-01-28 05:29] LABS: INR 1.22 (0.9-1.15); Partial Thromboplastin Time 26.6 sec (23.0-31.2)
[2020-01-28 05:34] LABS: Albumin 2.1 g/dL (3.4-5.0); Calcium 9.1 mg/dL (8.5-10.1); Magnesium 2.4 mg/dL (1.6-2.6); Potassium 4.2 mmol/L (3.5-5.1)
[2020-01-28 05:41] LABS: BUN/Creatinine Ratio 37.6; Bilirubin, Total 0.3 mg/dL (0.2-1.0); Phosphorus 3.3 mg/dL (2.5-4.90); Pre Albumin 6.9 mg/dL (20.0-40.0); Total Protein 6.4 g/dL (6.4-8.2)
[2020-01-28] MEDS: CARBIDOPA W LEVODOPA 25/100mg TABLET PO SCH ×3 (05:59→21:53)
--- NOTE | 2020-01-28 05:59 | NUR ---
SINEMET NOT GIVEN PATIENT DESATURATES EASILY WHEN OFF BIPAP KEPT NPO - NOT SWALLOWING WELL
[2020-01-28] MEDS: ALBUTEROL SULF HFA 90MCG INH 200DOSE IN SCH (06:16)
[2020-01-28] MEDS: BUDESONIDE (INHALATION) 180 MCG IH IN SCH (06:16)
--- NOTE | 2020-01-28 08:40 | NUR ---
ATIVAN GIVEN ORDERED DUE TO PATIENT RESTLESSNESS/FIDGETING AND REMOVING BIPAP MASK CONSTANTLY WITH LOW SPO2. ATIVAN GIVEN AFTER MULTIPLE ATTEMPTS AT REORIENTING/ENCOURAGING AND EDUCATING PATIENT ON NEED FOR BIPAP MASK.
[2020-01-28] MEDS ORDERED: ETOMIDATE (2MG/ML) 20ML VIAL IV ONE (10:42)
[2020-01-28] MEDS ORDERED: SUCCINYLCHOLINE CHLORIDE 20 MG/ML 10ML VIAL IV ONE (10:43)
[2020-01-28] MEDS ORDERED: PROPOFOL 0 ML IV ONE (10:44)
[2020-01-28] MEDS ORDERED: MIDAZOLAM DRIP 50 mg/50mL 50 ML IV ONE (10:48)
[2020-01-28] MEDS ORDERED: fentaNYL Drip 2500mCg/250mlNS 250 ML IV ONE (11:22)
[2020-01-28] MEDS: MIDAZOLAM DRIP 50 mg/50mL 50 ML IV SCH (11:30)
[2020-01-28] MEDS: fentaNYL Drip 2500mCg/250mlNS 250 ML IV SCH (11:30)
--- NOTE | 2020-01-28 12:00 | NUR ---
WOUND CARE NOTE: IN TO SEE PATIENT FOR SKIN INTEGRITY MONITORING AT THIS TIME. PATIENT CONTINUES TO BE RESTING ON ICU LOW AIRLOSS BED. HE HAS RECENTLY BEEN INTUBATED, SEDATED, CONTINUES TO BE IN AIRBORNE ISOLATION FOR COVID 19. PATIENT TURNED TO RIGHT SIDE, SO TO VISUALIZE SACRAL SKIN. PATIENT'S SMALL PARTIAL THICKNESS WOUND IS NOW RESOLVED, COVERED IN PALE PINK SCAR TO BILATERAL SACRUM. WOUND PHOTO TAKEN AT THIS TIME FOR REFERENCE. APPLIED MOISTURE BARRIER CREAM, OPTIFOAM GENTLE SACRAL DRESSING. NO OTHER SKIN INTEGRITY ISSUES SEEN AT THIS TIME. PATIENT REPOSITIONED ONTO LEFT SIDE, REDISTRIBUTING PRESSURE POINTS WITH PILLOWS/WEDGES. RECOMMEND: CONTINUATION WITH ALL WOUND CARE ORDERS PREVIOUSLY PRESCRIBED BY MD. WOUND CARE TEAM WILL CONTINUE TO MONITOR. Addendum: 01/28/20 at 1642 by Mayra Mccarty RN Amended: Links added.
--- NOTE | 2020-01-28 12:21 | NUR ---
Respiratory note: PATIENT INTUBATED BY BISHNU Conte RRT, FOR IMPENDING RESPIRATORY FAILURE, PER DR. HARDIN'S VERBAL ORDER, WITH AN 8.0 ETT ON FIRST ATTEMPT. POSITIVE COLOR CHANGE WAS SEEN ON CO2 DETECTOR, BILATERAL BREATH SOUNDS WERE HEARD, AND CONDENSATION WAS SEEN IN THE TUBE. ETT SECURED VIA BRODY AT THE 24CM MARKING AT THE LIP AND WAS PLACED ON V200 VENT WITH THE CHARTED SETTINGS. SPO2 90%, LUNG SOUNDS DIM T/O, SMALL AMOUNT OF THIN LIGHT GREEN SECRETIONS WHEN SUCTIONED. SPUTUM SAMPLE COLLECTED AND SENT TO LAB. SKIN IS WARM/DRY TO THE TOUCH AND IS INTACT NEAR BRODY SITE. CXR TAKEN AND ASSESSED, IT SHOWS ETT IN SATISFACTORY POSITION SITTING APPROX 3.2CM ABOVE THE KATHY. PATIENT IS SLIGHTLY RESPONSIVE TO TACTILE STIMULI AND IS SEDATED ON VERSED AND FENTANYL DRIPS. HE IS RESTING COMFORTABLY AND TOLERATING VENT WELL. VENT PLUGGED INTO RED OUTLET AND ALL ALARMS ARE SET AND AUDIBLE. WILL CONTINUE TO ASSESS PATIENT WELL VENTILATOR FUNCTION. DEONDRE ENCINAS AT BEDSIDE AND AWARE OF ALL SETTINGS.
[2020-01-28] MEDS: DexAMETHasone SOD PHOS 10MG/1ML VIAL INJ IV SCH (12:27)
[2020-01-28] MEDS: DOCUSATE SOD 100 MG CAP PO SCH ×2 (12:28→21:51)
[2020-01-28] MEDS: ZINC SULFATE 220mg CAP or TAB PO SCH (12:28)
[2020-01-28] MEDS: PANTOPRAZOLE 40 MG/10 ML VIAL INJ IV SCH (12:28)
[2020-01-28] MEDS: ASCORBIC ACID 1,000 MG TAB PO SCH (12:29)
[2020-01-28] MEDS: ENOXAPARIN SOD 100 MG/1 ML SYRINGE SC SCH (12:29)
[2020-01-28] MEDS: CHOLECALCIFEROL (VITD3) 2,000 UNIT CAP PO SCH (12:29)
[2020-01-28] MEDS: cefTRIAXone 1GM/50ML D5W 50 ML IV SCH (12:32)
--- NOTE | 2020-01-28 12:34 | NUR ---
SPOKE WITH DR HARDIN AT 1040. AWARE PATIENT HAS INCREASING RESTLESSNESS AND WILL NOT KEEP BIPAP ON. AWARE OF ABG RESULTS. AWARE LOW SPO2 SEE VS SPREADSHEET. GAVE ORDER FOR INTUBATION. RN SPOKE WITH CATALINA BRAGA WHO SPOKE WITH HIS SISTER ABRAN AND AGREED TO INTUBATE CONSENT VERIFIED OVER PHONE BY SECOND NURSE MIKAYLA CHAVEZ RN. GAVE OK FOR SHIVA WHITE TO INTUBATE. RN GAVE ETOMIDATE 20 MG IV AND SUCCINYLCHOLINE 80 MG IV WITH ORDER. SHIVA RT INTUBATED AT 1110 WITH SIZE 8, 24 LIP ON AC RATE 20 TV 550 FIO2 100%. PATIENT TOLERATED PROCEDURE WELL. OGT IN PLACE UPON AUSCULTATION. PICC LINE RN PAGED FOR ORDERED PICC PLACEMENT.
--- NOTE | 2020-01-28 13:10 | NUR ---
Respiratory note: VENT CHANGES MADE. VT DECREASED TO 500, PEP DECREASED TO [address] HARDIN. DEONDRE ENCINAS AWARE OF ALL CHANGES MADE.
--- NOTE | 2020-01-28 13:20 | NUR ---
DR HARDIN AT BEDSIDE, ASSESSED PATIENT AND AWARE OF SUBQ EMPHYSEMA ON BILATERAL NECK AND CHEST. NEW ORDERS RECEIVED. NEW ORDER PLACED FOR ATRACURIUM GTT AND PLAN TO PRONE.
--- NOTE | 2020-01-28 13:22 | NUR ---
XRAY AT BEDSIDE
[2020-01-28] MEDS ORDERED: LIDOCAINE 1% (LOCAL ANESTH.) PF 5ml SDV ID ONE (15:30)
--- NOTE | 2020-01-28 15:38 | NUR ---
PICC line placement Patient significant other educated on need for PICC line placement. All risks and benefits explained and all questions and concerns addressed prior to procedure. Noted past medical history and allergies with no contraindications. INR and Plt counts within acceptable range. 5 fr PICC line inserted via RIGHT BRACHIAL vein using [employer] US and Tip Location System. Sterile technique with maximum barrier precautions utilized. Blood return obtained from each of THE THREE lumens and each flushed easily with NS using proper technique. PICC secured with Stat-lock; biodisc and occlusive dressing applied. Stat portable chest x-ray obtained for PICC tip placement. PRIMARY DEONDRE ENCINAS NOTIFIED OF PLACEMENT *Baseline Arm Circumference 28 CM INTERNAL LENGTH 41 CM EXTERNAL LENGTH 0 CM PICC lot # [id number]
[2020-01-28] MEDS ORDERED: FUROSEMIDE 20 MG/2 ML VIAL IV ONE (16:00)
--- NOTE | 2020-01-28 16:36 | NUR ---
OK to use PICC line Xray completed. OK to use PICC line. PRIMARY RN CE NOTIFIED
[2020-01-28] MEDS: ATRACURIUM BESYLATE 1,000 MG in D5W 5% 150 ML IV SCH (16:48)
--- NOTE | 2020-01-28 19:00 | NUR ---
AROUND 1700 DR MARTI AT BEDSIDE AND INSERTED ARTERIAL LINE TO LEFT FEMORAL ARTERY AFTER TELEPHONE CONSENT OBTAINED FROM CATALINA SON VERIFIED BY SECOND RN NIKO. PATIENT TOLERATED WELL. ATRACURIUM GTT STARTED AT 1700 WITH TOF 4/4 BASELINE PRIOR TO STARTING PARALYTIC. AROUND 1800 2 RT [address] MARTI AT BEDSIDE AND TEAM PLACED PATIENT IN PRONE POSITION. TOLERATED WELL AND SPO2 SATS 95% AND ABOVE. ATRACURIUM GTT INCREASED AT 1800 PRIOR TO PRONE POSITION DUE TO TOF 4/4. SEE IV SPREADSHEET.
[2020-01-28] MEDS: REMDESIVIR 100mg in NS 230ml DAILYx4DAYS (NO VENT) IV SCH (19:10)
--- NOTE | 2020-01-28 19:30 | NUR ---
REPORT RECEIVED, ASSUMED CARE.
[2020-01-28] MEDS ORDERED: PPN PER PHARMACY IV NR ×9 (20:00)
[2020-01-28] MEDS: SODIUM CHLOR 0.9% PF (SALINE LOCK) 10ML VIAL/SYR IV SCH (21:50)
[2020-01-28] MEDS: ALBUTEROL SULF 2.5 MG/0.5ML(0.5%) NEB SOLN NEB SCH (22:01)
[2020-01-28] MEDS: BUDESONIDE (INHALATION) 0.5 MG/2 ML NEB NEB SCH (22:01)
[2020-01-29] VITALS (100 sets, daily range): BP systolic 92–197; BP diastolic 40–78
[2020-01-29] MEDS: MIDAZOLAM DRIP 50 mg/50mL 50 ML IV SCH ×3 (00:37→23:56)
[2020-01-29 03:47] LABS: Basophils # (auto) 0 10 ^3/uL (0-0.2); Basophils % (auto) 0.1 % (0.0-2.0); Eosinophils # (auto) 0 10 ^3/uL (0-0.8); Hematocrit 42.9 % (41.0-53.0); Hemoglobin 14.4 g/dL (13.5-17.5); Lymphocytes # (auto) 0.2 10 ^3/uL (0.4-5.4); Lymphocytes % (auto) 2.5 % (10.0-50.0); Mean Corpuscular Hemoglobin 28.9 pg (28.0-32.0); Mean Corpuscular Hgb Conc. 33.7 g/dL (32.0-36.0); Mean Corpuscular Volume 85.8 fL (80.0-100.0); Monocytes # (auto) 0.2 10 ^3/uL (0-1.3); Monocytes % (auto) 3.1 % (0.0-12.0); Neutrophils % (auto) 94.3 % (37.0-80.0); Nucleated Red Blood Cells % 0.1 %; Platelet Count (auto) 246 10^3/uL (140-450); Red Cell Distribution Width 13.9 % (11.8-14.3); White Blood Cell 7.4 10^3/uL (4.4-10.8)
[2020-01-29 04:29] LABS: Albumin 1.9 g/dL (3.4-5.0); Calcium 8.5 mg/dL (8.5-10.1); Magnesium 2.6 mg/dL (1.6-2.6); Potassium 5.2 mmol/L (3.5-5.1)
[2020-01-29 04:33] LABS: BUN/Creatinine Ratio 46.1; Bilirubin, Total 0.3 mg/dL (0.2-1.0); Phosphorus 6.5 mg/dL (2.5-4.90); Total Protein 6.1 g/dL (6.4-8.2)
[2020-01-29] MEDS: CARBIDOPA W LEVODOPA 25/100mg TABLET PO SCH (05:53)
[2020-01-29] MEDS: ACCU-CHEK COMFORT CURVE STRIP VI SCH ×4 (05:54→23:54)
[2020-01-29] MEDS: InsuLIN REG 1unit/0.01ml Soln (100units/ml) SC SCH ×3 (05:57→18:34)
--- NOTE | 2020-01-29 06:56 | NUR ---
PT BP INCREASING, INCREASED SEDATION. WILL CONT TO MONITOR AND GIVE IN REPORT.
[2020-01-29] MEDS: ALBUTEROL SULF 2.5 MG/0.5ML(0.5%) NEB SOLN NEB SCH ×3 (07:12→22:05)
--- NOTE | 2020-01-29 07:12 | NUR ---
Respiratory note: PT RECEIVED FROM [employer] SENIOR OFFICER ON VENT V-12 PLUGGED INTO RED OUTLET. ALL VENT ALARMS ARE AUDIBLE, AND FUNCTIONING. AMBU BAG/MASK IS AT BEDSIDE CONNECTED TO AN O2 SOURCE. ETT IS 8.0 @ THE 24 LIP LINE SECURED WITH TAPE. PT IS IN PRONE POSITION, WITH FOAM SUPPORT IN PLACE. UNABLE TO MOVE ETT AT THIS TIME WITHOUT PT LOOSING VOLUMES. NO SKIN BREAK DOWN VISIBLE FROM PT POSITION. SOME SUBCUTANEOUS EMPHYSEMA NOTED ON PT LEFT SIDE OF NECK. BS ARE DIMINISHED BILATERALLY. SX PT FOR NO RETURN, NO GAG REFLEX NOTED. MEDNEB TX GIVEN INLINE VIA AEROGEN, WITH NO ADVERSE EFFECTS NOTED. PT SKIN IS COOL/DRY TO THE TOUCH. NO EDEMA PRESENT AT THIS TIME. NO NEW VENT CHANGES ORDERED. WILL CONTINUE TO MONITOR PT. CHARTING COMPLETE FROM OUTSIDE OF PT ROOM PER COVID-19 PRECAUTIONS/PROTOCOL.
[2020-01-29] MEDS: BUDESONIDE (INHALATION) 0.5 MG/2 ML NEB NEB SCH ×2 (07:13→22:05)
--- NOTE | 2020-01-29 07:30 | NUR ---
Opening Shift Note Received pt on mechanical ventilator, sedated and paralyzed in prone position. See IV spreadsheet for details. Unable to assess pupils and front side of pt. Pt ventilator alarming with high pressure alarm. Paralytic and sedation increased to 7mcg, See IV spreadhseet. TOF 2/4 AT [facility] RT at bedside assessing pt. SPO2 100% on bedside monitor. A-line to left femoral Zeroed with good wave form. YOVANNY midline, JONATHAN PICC TLC, and 22 g to L AC. Acevedo catheter intact draining to gravity, free of kinks. Will continue to monitor closely.
--- NOTE | 2020-01-29 07:57 | NUR ---
Respiratory note: DR MARTI PAGED TO RETURN CALL FOR READ BACK OF CRITICAL ABG VALUES.
--- NOTE | 2020-01-29 08:45 | NUR ---
Family Received phone call from vicky House's daughter. All questions and concerns addressed at this time.
[2020-01-29] MEDS: cefTRIAXone 1GM/50ML D5W 50 ML IV SCH (09:11)
--- NOTE | 2020-01-29 09:45 | NUR ---
Pt switched from prone position to supine without any incidences. Dr. Ortiz at bedside. New orders received.
[2020-01-29] MEDS: DOCUSATE SOD 100 MG CAP PO SCH ×2 (10:00→22:00)
--- NOTE | 2020-01-29 10:00 | NUR ---
Respiratory note: ALL VENT ALARMS ARE AUDIBLE, AND FUNCTIONING. PT TURNED BACK TO SUPINE POSITION, FROM PRONE POSITION WITHOUT INCIDENT. RN, DR MARTI, TECH, AT BEDSIDE. DR MARTI GAVE ORDER TO DC PRONING. TAPE REMOVED FROM ETT, AND RE-SECURED WITH BRODY. NO ORAL/SKIN BREAK DOWN NOTED. SOME SUBCUTANEOUS EMPHYSEMA NOTED ON PT LEFT SIDE OF CHEST, NECK, AND FACE TOWARD LEFT EYE. RN AWARE. BS ARE DIMINISHED BILATERALLY. SX FOR SCANT AMOUNT OF THIN, CLEAR SECRETIONS. NO GAG REFLEX NOTED. RR INCREASED TO 22, AND FIO2 TITRATED TO 85%. ABG HOUR POST VENT CHANGES PER DR MARTI'S ORDER. NO OTHER VENT CHANGES ORDERED AT THIS TIME. WILL CONTINUE TO MONITOR PT. CHARTING COMPLETE FROM OUTSIDE OF PT ROOM PER COVID-19 PRECAUTIONS/PROTOCOL.
[2020-01-29] MEDS: DexAMETHasone SOD PHOS 10MG/1ML VIAL INJ IV SCH (10:10)
[2020-01-29] MEDS: SODIUM CHLOR 0.9% PF (SALINE LOCK) 10ML VIAL/SYR IV SCH ×2 (10:11→22:23)
[2020-01-29] MEDS: ASCORBIC ACID 1,000 MG TAB PO SCH (10:11)
[2020-01-29] MEDS: CHOLECALCIFEROL (VITD3) 2,000 UNIT CAP PO SCH (10:11)
[2020-01-29] MEDS: ZINC SULFATE 220mg CAP or TAB PO SCH (10:11)
[2020-01-29] MEDS: PANTOPRAZOLE 40 MG/10 ML VIAL INJ IV SCH (10:11)
[2020-01-29] MEDS: ENOXAPARIN SOD 100 MG/1 ML SYRINGE SC SCH (10:12)
--- NOTE | 2020-01-29 11:29 | NUR ---
Dr. Cummingsja aware of Chest X-Ray results; MD will monitor pt for now and is aware of increased subcutaneous emphysema.
--- NOTE | 2020-01-29 12:33 | NUR ---
Respiratory note: DR MARTI CALLED, AND READ BACK CRITICAL ABG VALUES. NO VENT CHANGES ORDERED AT THIS TIME. DR MARTI ALSO INFORMED THAT SUBCUTANEOUS EMPHYSEMA SEEMS TO BE INCREASING TOWARDS THE LEFT LOWER EYE. DR MARTI/RN AWARE. WILL CONTINUE TO MONITOR PT. CHARTING COMPLETE FROM OUTSIDE OF PT ROOM PER COVID-19 PRECAUTIONS/PROTOCOL.
[2020-01-29] MEDS ORDERED: DEXTROSE (50%) 50ML SYRG IV PRN (13:00)
[2020-01-29] MEDS ORDERED: TPN PER PHARMACY 0 ML IV SCH (13:00)
[2020-01-29] MEDS ORDERED: INSULIN LANTUS (GLARGINE) 1 /0.01ml (100units/ml) SC ONE (13:00)
--- NOTE | 2020-01-29 13:00 | NUR ---
DR. Waddell at bedside assessing pt. New orders received. MD viewed Chest X Ray and is aware of results
[2020-01-29] MEDS: fentaNYL Drip 2500mCg/250mlNS 250 ML IV SCH ×2 (13:15→23:56)
--- NOTE | 2020-01-29 13:16 | NUR ---
MD Ortiz aware of increasing subcutaneous emphysema. New order for stat Chest x ray
--- NOTE | 2020-01-29 16:26 | NUR ---
Nutrition Followup Notes Pt wt is 75.6 kg/m2 Pt is positive for COVID. Pt is intubated, NPO with PN support @ 48ml/hr, providing 680kcals, 60g of protein and 920 NPCs. PN support meets 34-37% of est energy needs and 70-76% of est protein needs. Est Energy needs ABW 79 [id number] kcals (23-25 kcal/kgABW), Est Protein needs: 79-86 gms/day (1.0-1.1gm/kgABW). Will continue to monitor and reassess prn. LABS: BUN 59 H, Creat 1.28 H, Ca 6.5 L, Gluc 348 H, Alb 1.9 L GI: Pt with no BM today per RN doc. BS: 10 high risk. Refer to wound assessment report for full details. PES: 1) Altered nutrition related lab values r.t current chronic medical condition aeb elev BUN hyperglycemia mod hypoalb 2) Decreased nutrient needs r/t adiposity aeb pt`s high BMI of 31.6 kgm2 Comments Will continue to monitor PO status, skin status, pertinent labs and weight trends. Will f/u in 3-5 days. 1) refer to CDE on DC 2) consider a daily MVI with 500mg VitC bid 3) continue current plan of care
[2020-01-29] MEDS: REMDESIVIR 100mg in NS 230ml DAILYx4DAYS (NO VENT) IV SCH (17:24)
[2020-01-29] MEDS: ATRACURIUM BESYLATE 1,000 MG in D5W 5% 150 ML IV SCH (18:37)
--- NOTE | 2020-01-29 19:02 | NUR ---
Family Spoke with Mathew, son, and updated on pt status. All questions and concerns addressed at this time.
--- NOTE | 2020-01-29 19:28 | NUR ---
End of shift note Report given to casino shift manager RN. Pt remains on paralytic at 5mcg . See IV spreadsheet for details. TOF assessed at right ulner with 2/4 twitches at 8 mA. VSS. Care endorsed.
[2020-01-29] MEDS ORDERED: TPN PER PHARMACY IV NR ×8 (20:00)
[2020-01-29] MEDS ORDERED: PPN PER PHARMACY IV NR ×8 (20:00)
--- NOTE | 2020-01-29 20:00 | NUR ---
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
[2020-01-30] VITALS (102 sets, daily range): BP systolic 65–144; BP diastolic 22–69
--- NOTE | 2020-01-30 | NUR ---
PATIENT HAS AIR IN SOFT TISSUES / CREPITUS WORSENING CREPITUS IN BILATERAL NECK, CHEST, AND UPPER ARMS. CREPITUS SPREAD TO FOREARMS AND TO ABDOMEN. CHEST XRAY PER PROTOCOL VITAL SIGNS ARE STABLE. PER REPORT MD AWARE OF WORSENING CREPITUS SINCE INTUBATION
[2020-01-30] MEDS: InsuLIN REG 1unit/0.01ml Soln (100units/ml) SC SCH ×4 (00:01→18:25)
--- NOTE | 2020-01-30 01:40 | NUR ---
WARMING MEASURES TEMP 97.5, DANIEL HR IN MID 55'S APPLIED WARM BLANKETS, CEILINGS HEAT LAMP IS ON. WILL CONTINUE WARMING MEASURES NEEDED.
[2020-01-30] MEDS: ACCU-CHEK COMFORT CURVE STRIP VI SCH ×3 (05:32→18:25)
[2020-01-30 06:11] LABS: Albumin 1.7 g/dL (3.4-5.0); Calcium 8.1 mg/dL (8.5-10.1); Magnesium 2.6 mg/dL (1.6-2.6); Potassium 4.7 mmol/L (3.5-5.1)
[2020-01-30 06:14] LABS: BUN/Creatinine Ratio 46.7; Bilirubin, Total 0.2 mg/dL (0.2-1.0); Total Protein 5.3 g/dL (6.4-8.2)
[2020-01-30] MEDS: BUDESONIDE (INHALATION) 0.5 MG/2 ML NEB NEB SCH ×2 (06:20→22:28)
[2020-01-30] MEDS: ALBUTEROL SULF 2.5 MG/0.5ML(0.5%) NEB SOLN NEB SCH ×3 (06:20→22:28)
[2020-01-30] MEDS: MIDAZOLAM DRIP 50 mg/50mL 50 ML IV SCH ×4 (06:44→22:09)
[2020-01-30 06:52] LABS: Basophils # (auto) 0 10 ^3/uL (0-0.2); Basophils % (auto) 0.1 % (0.0-2.0); Eosinophils # (auto) 0 10 ^3/uL (0-0.8); Hematocrit 38.9 % (41.0-53.0); Hemoglobin 12.7 g/dL (13.5-17.5); Lymphocytes # (auto) 0.2 10 ^3/uL (0.4-5.4); Lymphocytes % (auto) 2.6 % (10.0-50.0); Mean Corpuscular Hemoglobin 28.2 pg (28.0-32.0); Mean Corpuscular Hgb Conc. 32.8 g/dL (32.0-36.0); Monocytes # (auto) 0.3 10 ^3/uL (0-1.3); Monocytes % (auto) 4.5 % (0.0-12.0); Neutrophils # (auto) 6.9 10 ^3/uL (1.6-8.6); Neutrophils % (auto) 92.8 % (37.0-80.0); Platelet Count (auto) 205 10^3/uL (140-450); Red Blood Cells 4.52 10^6/uL (4.5-5.90); Red Cell Distribution Width 13.9 % (11.8-14.3); White Blood Cell 7.4 10^3/uL (4.4-10.8)
--- NOTE | 2020-01-30 07:45 | NUR ---
OPENING SHIFT NOTE REPORT RECEIVED FROM IMAGE EDITOR RN, MORNING ASSESSMENT PERFORMED AND DOCUMENTED (SEE INTERVENTION SHEET FOR DETAILS). POC REVIEWED. AT THIS TIME, PATIENT IS MECHANICALLY VENTILATED, SEDATED AND ON PARALYTIC, UNAROUSABLE WITH HYPO COUGH AND GAG, NO DISTRESS NOTED, RESPIRATIONS EVEN AND UNLABORED, PUPILS 2+ AND EXTREMELY SLUGGISH. CREPITUS NOTED FROM NECK EXTENDING TO ALL LEFT UPPER EXTREMITY, RIGHT ELBOW AND ALL CHEST. LUNG SOUNDS DIMINISHED, OGT PLACEMENT VERIFIED VIA AUSCULTATION AND CXR. HOWARD CATHETER DRAINING SEDIMENT/YELLOW URINE TO GRAVITY. VSS AND DOCUMENTED, IV SITE BENIGN, PATIENT REPOSITIONED FOR SKIN ASSESSMENT AND TO MAINTAIN SKIN INTEGRITY, PARTIAL BEDDING CHANGED, PATIENT TOLERATED TURNS WELL. FALL AND SAFETY PRECAUTIONS IN PLACE, WILL CONTINUE TO MONITOR.
--- NOTE | 2020-01-30 09:05 | NUR ---
Family updated on pt status Family of YODIT BROWN updated on patient's status and condition after password verification. All questions and concerns addressed. Son Mathew verbalized understanding.
[2020-01-30] MEDS ORDERED: INSULIN LANTUS (GLARGINE) 1 /0.01ml (100units/ml) SC SCH (10:00)
[2020-01-30] MEDS: DOCUSATE SOD 100 MG CAP PO SCH ×2 (10:00→22:00)
--- NOTE | 2020-01-30 10:05 | NUR ---
PULMONOLOGY VISITS DR MARTI UPDATED ON PATIENT'S STATUS, CXR FINDINGS AND CREPITUS NOTED ON ASSESSMENT. VERBALIZED UNDERSTANDING. NO ORDERS RECEIVED AT THIS TIME.
[2020-01-30] MEDS: cefTRIAXone 1GM/50ML D5W 50 ML IV SCH (10:24)
[2020-01-30] MEDS: PANTOPRAZOLE 40 MG/10 ML VIAL INJ IV SCH (10:25)
[2020-01-30] MEDS: DexAMETHasone SOD PHOS 10MG/1ML VIAL INJ IV SCH (10:25)
[2020-01-30] MEDS: SODIUM CHLOR 0.9% PF (SALINE LOCK) 10ML VIAL/SYR IV SCH ×2 (10:25→22:07)
[2020-01-30] MEDS: CHOLECALCIFEROL (VITD3) 2,000 UNIT CAP PO SCH (10:25)
[2020-01-30] MEDS: ASCORBIC ACID 1,000 MG TAB PO SCH (10:30)
[2020-01-30] MEDS: ENOXAPARIN SOD 100 MG/1 ML SYRINGE SC SCH (10:30)
[2020-01-30] MEDS: ZINC SULFATE 220mg CAP or TAB PO SCH (10:30)
[2020-01-30] MEDS: fentaNYL Drip 2500mCg/250mlNS 250 ML IV SCH (13:14)
--- NOTE | 2020-01-30 13:40 | NUR ---
HOSPITALIST VISITS DR HARDIN UPDATED ON PATIENT'S STATUS, CONTINUED ELEVATED BLOOD SUGARS, CXR FINDINGS, CREPITUS NOTED UPON ASSESSMENT AND MORNING LABS INCLUDING ELEVATED BUN/CREATININE. MD VERBALIZED UNDERSTANDING, ASSESSED PATIENT AND UPDATED PATIENT'S FAMILY VIA TELEPHONE. MD DECREASED FIO2 TO 90%, R.T. WILL BE NOTIFIED, NO FURTHER VERBAL ORDERS GIVEN.
[2020-01-30] MEDS ORDERED: DEXTROSE (50%) 50ML SYRG IV PRN (13:45)
[2020-01-30] MEDS: SODIUM CHLORIDE 0.9% 1,000 ML IV SCH (15:49)
[2020-01-30] MEDS: REMDESIVIR 100mg in NS 230ml DAILYx4DAYS (NO VENT) IV SCH (16:58)
--- NOTE | 2020-01-30 18:15 | NUR ---
COMFORT/INCREASE FIO2 COMFORT MEASURES PROVIDED, PATIENT TURNED TO MAINTAIN SKIN INTEGRITY, ATTEMPT TO TURN HEAD TO LEFT SIDE TO MAINTAIN SKIN INTEGRITY TO RIGHT EAR. PATIENT DID NOT TOLERATE WELL, SBP IN THE LOW 60'S ARTERIAL AND PERIPHERAL IN THE HIGH 70'S, OXYGEN SATURATIONS DECREAED TO THE LOW 80%. NEED TO INCREASE FIO2 TO 100%. - REMOVED PROP ON HEAD AND PATIENT SBP RECUPERATED, NO NEED FOR INTERVENTION, HOWEVER, FIO2 REMAINS AT 100% WITH CURRENT SATURATION 93%. Gricel ANTONIO. NOTIFIED.
[2020-01-30] MEDS ORDERED: TPN PER PHARMACY IV NR ×8 (20:00)
[2020-01-31] VITALS (72 sets, daily range): BP systolic 79–138; BP diastolic 41–69
[2020-01-31] MEDS: ACCU-CHEK COMFORT CURVE STRIP VI SCH ×3 (00:25→11:36)
[2020-01-31] MEDS: InsuLIN REG 1unit/0.01ml Soln (100units/ml) SC SCH ×3 (00:26→11:37)
[2020-01-31] MEDS: fentaNYL Drip 2500mCg/250mlNS 250 ML IV SCH ×2 (00:40→12:30)
[2020-01-31 03:42] LABS: Albumin 1.5 g/dL (3.4-5.0); Calcium 8.1 mg/dL (8.5-10.1); Magnesium 2.4 mg/dL (1.6-2.6); Potassium 4.6 mmol/L (3.5-5.1)
[2020-01-31 03:45] LABS: BUN/Creatinine Ratio 46.5; Bilirubin, Total 0.1 mg/dL (0.2-1.0); Phosphorus 2.7 mg/dL (2.5-4.90); Total Protein 4.8 g/dL (6.4-8.2)
[2020-01-31] MEDS: SODIUM CHLORIDE 0.9% 1,000 ML IV SCH (04:23)
[2020-01-31] MEDS: MIDAZOLAM DRIP 50 mg/50mL 50 ML IV SCH ×3 (04:24→14:40)
[2020-01-31] MEDS: BUDESONIDE (INHALATION) 0.5 MG/2 ML NEB NEB SCH (06:35)
[2020-01-31] MEDS: ALBUTEROL SULF 2.5 MG/0.5ML(0.5%) NEB SOLN NEB SCH ×2 (06:35→14:45)
--- NOTE | 2020-01-31 06:45 | NUR ---
DECREASED FIO2 TO 90%.
--- NOTE | 2020-01-31 07:40 | NUR ---
OPENING SHIFT NOTE REPORT RECEIVED FROM ARCHEOLOGY PROFESSOR RN, MORNING ASSESSMENT PERFORMED AND DOCUMENTED (see intervention sheet for details). POC REVIEWED, PATIENT MECHANICALLY VENTILATED ON 90% FIO2 WITH A PEEP OF 12, AND SEDATED. PATIENT DOES NOT RESPOND TO VOICE OR FOLLOW COMMANDS BUT DOES HAVE A NORMAL COUGH AND GAG, PUPILS 2+, EQUAL, EXTREMELY SLUGGISH. NOTED SWELLING OF THE NECK, EYES LEFT GREATER THAN RIGHT AND DECREASE IN CREPITUS COMPARED TO YESTERDAY'S ASSESSMENT FROM NECK DOWN TO ABDOMEN. LUNG SOUNDS DIMINISHED, OGT PLACEMENT VERIFIED VIA AUSCULTATION AND CXR. HOWARD CATHETER DRAINING SEDIMENT/YELLOW URINE TO GRAVITY. VSS AND DOCUMENTED, IV SITES BENIGN, PATIENT REPOSITIONED TO MAINTAIN SKIN INTEGRITY, PATIENT TOLERATED WELL. FALL AND SAFETY PRECAUTIONS IN PLACE, WILL CONTINUE TO MONITOR.
--- NOTE | 2020-01-31 08:05 | NUR ---
Family updated on pt status Family of YODIT BROWN updated on patient's status and condition after password verification. All questions and concerns addressed. Patient's daughter Yi verbalized understanding.
--- NOTE | 2020-01-31 09:10 | NUR ---
Family updated on pt status Family of YODIT BROWN updated on patient's status and condition after password verification. All questions and concerns addressed. Patient's son Mathew verbalized understanding.
[2020-01-31] MEDS: cefTRIAXone 1GM/50ML D5W 50 ML IV SCH (09:49)
[2020-01-31] MEDS ORDERED: INSULIN LANTUS (GLARGINE) 1 /0.01ml (100units/ml) SC SCH (10:00)
[2020-01-31] MEDS ORDERED: DOCUSATE ORAL LIQUID 100 MG/10 ML UD GT SCH (10:00)
--- NOTE | 2020-01-31 10:18 | NUR ---
NEPHROLOGY VISITS DR COLLAZO UPDATED ON PATIENT'S STATUS, MD VERBALIZED UNDERSTANDING. MD WILL REVIEW CHART AND ENTER ORDERS NECESSARY.
--- NOTE | 2020-01-31 10:32 | NUR ---
CALL RECEIVED FROM PULMONOLOGY/HOSPITALIST DR MARTI UPDATED ON PATIENT'S STATUS. DR MARTI STATED SHE WOULD CALL FAMILY AND SCHEDULE A TIME SO THAT FAMILY CAN COME VISIT PATIENT TO DISCUSS PLAN OF CARE.
[2020-01-31] MEDS: CHOLECALCIFEROL (VITD3) 2,000 UNIT CAP PO SCH (10:54)
[2020-01-31] MEDS: PANTOPRAZOLE 40 MG/10 ML VIAL INJ IV SCH (10:55)
[2020-01-31] MEDS: ENOXAPARIN SOD 100 MG/1 ML SYRINGE SC SCH (10:56)
[2020-01-31] MEDS: ZINC SULFATE 220mg CAP or TAB PO SCH (10:56)
[2020-01-31] MEDS: ASCORBIC ACID 1,000 MG TAB PO SCH (10:56)
[2020-01-31] MEDS: DexAMETHasone SOD PHOS 10MG/1ML VIAL INJ IV SCH (10:57)
[2020-01-31] MEDS: SODIUM CHLOR 0.9% PF (SALINE LOCK) 10ML VIAL/SYR IV SCH (10:57)
--- NOTE | 2020-01-31 12:33 | NUR ---
PULMONOLOGY/HOSPITALIST VISITS DR MARTI ONCE AGAIN UPDATED ON PATIENT'S STATUS AND NEED TO INCREASE SEDATION DUE TO FLUCTUATING TIDAL VOLUMES AND NOTED INCREASE RESPIRATORY EFFORT. MD VERBALIZED UNDERSTANDING AND STATED FAMILY WILL BE AT BEDSIDE AT APPROXIMATELY 1500 TODAY - MD WILL BE NOTIFIED OF FAMILY ARRIVAL.
--- NOTE | 2020-01-31 14:56 | NUR ---
Nutrition Followup Notes Pt wt is 95.8 kg/m2 (Note: Present wt measurement is more consistent with historical measurements rather than wt measured in the last two days) Pt is positive for COVID. Pt is intubated, NPO with PN support @ 50ml/hr, providing 990 kcals, 70g of protein and 710 NPCs. PN support meets 50-54% of est energy needs and 81-89% of est protein needs. Est Energy needs ABW 79 [id number] kcals (23-25 kcal/kgABW), Est Protein needs: 79-86 gms/day (1.0-1.1gm/kgABW). Will continue to monitor and reassess prn. LABS: BUN 67 H, Creat 1.44 H, Ca 8.1 L, Gluc 254 H, Alb 1.5 L GI: Pt with no BM today per RN doc. BS: 10 high risk. Refer to wound assessment report for full details. PES: 1) Altered nutrition related lab values r.t current chronic medical condition aeb elev BUN hyperglycemia mod hypoalb 2) Decreased nutrient needs r/t adiposity aeb pt`s high BMI of 31.6 kgm2 Comments Will continue to monitor PO status, skin status, pertinent labs and weight trends. Will f/u in 3-5 days. 1) refer to CDE on DC 2) consider a daily MVI with 500mg VitC bid 3) continue current plan of care
--- NOTE | 2020-01-31 15:08 | NUR ---
FAMILY AT BEDSIDE PATIENT'S SON CATALINA AND DAUGHTER ABRAN AT BEDSIDE ORDERED BY DR MARTI, [facility]IL[facility] DOCTOR TO NOTIFY, AWAITING RESPONSE. Addendum: 01/31/20 at 1559 by Phyllis Jenkins RN COVID [address]
--- NOTE | 2020-01-31 15:40 | NUR ---
FAMILY MEETING DR MARTI DISCUSSED PROGNOSIS AND PLAN OF CARE WITH JESIKA. ALL QUESTIONS AND CONCERNS WERE ADDRESSED BY DR MARTI, FAMILY VERBALIZED UNDERSTANDING AND BOTH AGREED WITH TERMINAL WEAN AND DNR STATUS. JESIKA BOTH VERBALIZED NEED TO NOTIFY OTHER FAMILY MEMBERS AND WILL LET STAFF KNOW WHEN THEY ARE READY.
--- NOTE | 2020-01-31 16:46 | NUR ---
FAMILY AT BEDSIDE JESIKA REPORTED TO THIS NURSE THAT THEY ARE READY TO DISCONNECT PATIENT OFF VENTILATOR PREVIOUSLY DISCUSSED WITH . Gricel. NOTIFIED. CHARGE AWARE WELL. FAMILY OPTED TO STAY BUT DECIDED NOT TO GO IN ROOM.
[2020-01-31] MEDS ORDERED: MORPHINE SULF INJ 2 MG/ML SYRINGE 1ML ONE (16:51)
[2020-01-31] MEDS ORDERED: MORPHINE SULF INJ 2 MG/ML SYRINGE 1ML IV PRN (17:00)
[2020-01-31] MEDS ORDERED: LORazepam 2MG/ML-1ML VIAL IV PRN (17:00)
--- NOTE | 2020-01-31 17:00 | NUR ---
PT. TERMINALLY EXTUBATED, PER DR. MARTI'S ORDERS AND FAMILY REQUEST. PLACED ON 3LPM NC, FAMILY OUTSIDE THE ROOM VIEWING PT.
--- NOTE | 2020-01-31 17:24 | NUR ---
HOSPITALIST AT BEDSIDE DR DAWN TO PRONOUNCE PATIENT, FAMILY AT BEDSIDE.
--- NOTE | 2020-01-31 17:32 | NUR ---
MESSAGE LEFT FOR MEAL ATTENDANT COUNT OF [place] MEAL ATTENDANT'S OFFICE CONTACTED TO NOTIFY OF PATIENT PASSING PER PROTOCOL. MESSAGE LEFT WITH DEBI, AWAITING RETURN CALL.
--- NOTE | 2020-01-31 17:52 | NUR ---
[facility]CT [facility] NOTIFIED OF PATIENT'S PASSING, ALL REQUIRED INFORMATION PROVIDED. NO FURTHER INFORMATION NECESSARY REFERRAL ID# [id number].
--- NOTE | 2020-01-31 18:24 | NUR ---
BODY RELEASED BY ONE [facility] LANDIS AWARE OF PATIENT COVID 19 POSITIVE AND RELEASED BODY WITH SAME ID NUMBER PREVIOUSLY DOCUMENTED.
--- NOTE | 2020-01-31 18:34 | NUR ---
CONTACT MORTUARY SPOKE WITH STARR AT [facility] , PROVIDED NECESSARY INFORMATION. WILL NOTIFY MORTUARY ONCE BODY IS RELEASED BY DIE DESIGNER APPRENTICE, A[facility]ING [facility]
--- NOTE | 2020-01-31 19:21 | NUR ---
END OF SHIFT REPORT REPORT GIVEN TO DRONE PILOT RN, [facility]. ENDORSED POST MORTEM CARE TO DRONE PILOT RN.
[2020-01-31] MEDS ORDERED: TPN PER PHARMACY IV NR ×10 (20:00)
[2020-01-31] MEDS ORDERED: SODIUM CHLORIDE 0.9% 1,000 ML IV SCH (20:00)
--- NOTE | 2020-01-31 20:28 | NUR ---
[employer] Yannick Dykes released the body to go to morgue or mortuary. No Case number given. Will prepare pt for discharge.
--- NOTE | 2020-01-31 21:20 | NUR ---
[facility] number [phone] called, stated they would call back in 60-90min with ETA of filler picker. Will prepare pt transport.
--- NOTE | 2020-01-31 23:00 | NUR ---
All lines and Acevedo removed. 975ml out of Acevedo.
--- NOTE | 2020-01-31 23:38 | NUR ---
Pt left with [facility] via their gurney. Double bagged with mortuary 2nd bag. All belongings sent with pt. Addendum: 01/31/20 at 2344 by Zuleima Curiel RN [facility].
== END 2020-01-31 23:44 | disposition expired | DRG 208 ==
LOC: ER 15:36 → EDBD 15:36 → TELE 15:37 → TELE-EAST 01-21 01:40 → ICU CENTRL 01-25 07:41 → DOU IN ICU 01-25 07:47
PROVIDERS: ADMIT Nurse Practitioner; ATTEND Internal Medicine Pulmonary Disease
PROC: 5A09357 Assistance with Respiratory Ventilation, Less than 24 Consecutive Hours, Continuous Positive Airway Pressure (ICD-10-PCS; 2020-01-25)
PROC: 5A09457 Assistance with Respiratory Ventilation, 24-96 Consecutive Hours, Continuous Positive Airway Pressure (ICD-10-PCS; 2020-01-26)
PROC: XW13325 Transfusion of Convalescent Plasma (Nonautologous) into Peripheral Vein, Percutaneous Approach, New Technology Group 5 (ICD-10-PCS; 2020-01-26)
PROC: XW033E5 Introduction of Remdesivir Anti-infective into Peripheral Vein, Percutaneous Approach, New Technology Group 5 (ICD-10-PCS; 2020-01-27)
PROC: 02HV33Z Insertion of Infusion Device into Superior Vena Cava, Percutaneous Approach (ICD-10-PCS; principal; 2020-01-28)
PROC: 5A1945Z Respiratory Ventilation, 24-96 Consecutive Hours (ICD-10-PCS; 2020-01-28)
PROC: 04HY32Z Insertion of Monitoring Device into Lower Artery, Percutaneous Approach (ICD-10-PCS; 2020-01-28)
PROC: 0BH17EZ Insertion of Endotracheal Airway into Trachea, Via Natural or Artificial Opening (ICD-10-PCS; 2020-01-28)
PROC: 3E0436Z Introduction of Nutritional Substance into Central Vein, Percutaneous Approach (ICD-10-PCS; 2020-01-29)
DX: U07.1 COVID-19 (principal); J12.89 Other viral pneumonia; J96.01 Acute respiratory failure with hypoxia; E43 Unspecified severe protein-calorie malnutrition; N39.0 Urinary tract infection, site not specified; N17.9 Acute kidney failure, unspecified; Z99.11 Dependence on respirator [ventilator] status; Z66 Do not resuscitate; G20 Parkinson's disease; E66.01 Morbid (severe) obesity due to excess calories; E11.9 Type 2 diabetes mellitus without complications; J98.2 Interstitial emphysema; E78.5 Hyperlipidemia, unspecified; I10 Essential (primary) hypertension; Z82.3 Family history of stroke; Z68.33 Body mass index [BMI] 33.0-33.9, adult
CPT/HCPCS: 31500; 36415; 36569; 36600; 71045; 80048; 80053; 81001; 82040; 82728; 82805; 82962; 83605; 83615; 83735; 83880; 84100; 84443; 84478; 85025; 85379; 85610; 85730; 86141; 86850; 86900; 86901; 87040; 87070; 87081; 87086; 87088; 87186; 87205; 87426; 93005; 93970; 94002; 94003; 94640; 94660; 96365; 96375; 97110; 97116; 97163; 97530; A4565; C9113; G0378; J0330; J0696; J1100; J1815; J2250; J2704; J3490; J7060; J7131